=== PATIENT | female | born 1945 | race Caucasian/White ===

== ENCOUNTER 2021-03-31 15:21 | Outpatient (REF) | payer OTHER, SELFPAY ==
[2021-03-31 20:52] LABS: BUN 28 mg/dL (7-18); Chloride 106 mmol/L (98-107); Estimated GFR 54.05 (mL/min/1.73m2); Glucose 82 mg/dL (74-106); Potassium 4.4 mmol/L (3.5-5.1); Sodium 141 mmol/L (136-145)
[2021-04-02 10:55] LABS: COVID-19 RT-PCR UVMMC Result Negative (Negative)
== END 2021-03-31 15:22 | disposition home or self-care (01) ==
LOC: NCHCN 15:21
PROVIDERS: Visit Provider Physician Assistant Medical
DX: Z20.822 Contact with and (suspected) exposure to COVID-19 (principal); J06.9 Acute upper respiratory infection, unspecified; I10 Essential (primary) hypertension
CPT/HCPCS: 80048; U0003

== ENCOUNTER 2021-09-03 15:59 | Outpatient (REF) | payer MEDICARE, SELFPAY ==
[2021-09-03 20:42] LABS: HCT 38.9 % (36.0-46.0); HGB 13.1 g/dL (11.2-15.7); MCH 30.8 pg (27.0-33.0); MCHC 33.7 % (32.0-36.0); MCV 92 fL (80-95); MPV 11.9 fL (8.0-11.0); Platelet Count 233 10^3/uL (130-400); RBC 4.25 10^6/uL (3.93-5.22); RDW 13.3 % (11.7-14.6); RDW-SD 43.3 fL; WBC 10.43 10^3/uL (4.4-10.8)
[2021-09-03 20:56] LABS: Hemoglobin A1C 6.7 % (<5.7)
[2021-09-03 21:11] LABS: ALT 20 U/L (14-59); AST 25 U/L (15-37); Albumin 3.7 g/dL (3.4-5.0); Alkaline Phosphatase 76 U/L (46-116); Anion Gap 8.8 mmol/L (3-11); BUN 38 mg/dL (7-18); Bilirubin, Total 0.4 mg/dL (0.2-1.0); CO2 27.2 mmol/L (21.0-32.0); CREATININE 1.4 mg/dL (0.55-1.02); Chloride 104 mmol/L (98-107); Cholesterol 132 mg/dL (<200); Estimated GFR 36.56 (mL/min/1.73m2); Glucose 166 mg/dL (74-106); HDL Cholesterol 78 mg/dL (40-60); Potassium 4.4 mmol/L (3.5-5.1); Sodium 140 mmol/L (136-145); Triglyceride 285 mg/dL (<150)
[2021-09-03 21:27] LABS: LDL CHOLESTEROL 36 mg/dL (<100)
== END 2021-09-03 16:00 | disposition home or self-care (01) ==
LOC: NCHCN 15:59
PROVIDERS: Visit Provider Physician Assistant Medical
DX: E11.9 Type 2 diabetes mellitus without complications (principal); I10 Essential (primary) hypertension
CPT/HCPCS: 80053; 80061; 83721; 85027; 83036

== ENCOUNTER 2021-10-31 18:50 | Outpatient (REF) | payer MEDICARE, SELFPAY ==
[2021-10-31 16:46] LABS: Anion Gap 10.2 mmol/L (3-11); BUN 23 mg/dL (7-18); CO2 27.8 mmol/L (21.0-32.0); CREATININE 1.1 mg/dL (0.55-1.02); Chloride 105 mmol/L (98-107); Estimated GFR 48.29 (mL/min/1.73m2); Glucose 211 mg/dL (74-106); Sodium 143 mmol/L (136-145)
== END 2021-10-31 18:51 | disposition home or self-care (01) ==
LOC: NCHCN 18:50
PROVIDERS: Visit Provider Physician Assistant Medical
DX: R79.89 Other specified abnormal findings of blood chemistry (principal)
CPT/HCPCS: 80048

== ENCOUNTER 2021-11-24 02:37 | Outpatient (CLI) | payer MEDICARE, SELFPAY ==
--- NOTE | 2021-11-24 | DI.CTLCSR_ITS ---
Exam(s) CT CHEST LUNG CANCER SCREEN EXAM: CT CHEST LUNG CANCER SCREEN CLINICAL HISTORY: CIGARETTE SMOKER F17.210 TECHNIQUE: Imaging Protocol: Axial computed tomography images with coronal and sagittal reformatted images were created and reviewed. Low dose screening protocol. COMPARISON: No exams were available for comparison FINDINGS: Tracheobronchial tree: No bronchiectasis or mucus plugging.. Mediastinum and Jessica: No dominant adenopathy or fluid collection. Pulmonary parenchyma: No consolidation or dominant measurable mass. Mild to moderate emphysematous ch anges, greater in the upper lobes.. Lung Nodules: 5.6 x 8.8 x 5.4 millimeter nodule anterior right lower lobe. 4 millimeter diameter jamin fissural nodule right middle lobe. 4 millimeter diameter peripheral nodule right upper lobe. Multiple other scattered tiny nodules both upper lobes. Calcified nodule left lower lobe. Pleura: No effusion. No pneumothorax. Heart: The heart is not dilated. coronary artery calcifications are seen. Aorta: Thoracic aorta non-dilated.Heavily calcified. Upper abdomen: Small hiatal hernia. Gallstones. Low-density nodule left adrenal gland consistent with an adenoma. Bones: Prominent osteophytes. No compression fractures. Soft Tissues: Unremarkable. IMPRESSION: 6.6 millimeter average diameter nodule right lower lobe. Additional 4 millimeter nodules right middle and upper lobes. Lung RADS Cat 3 - Probably Benign: Probably benign finding(s) - short term follow-up suggested; inclu de nodules with a low likelihood of becoming a clinically active cancer. Lung-RADS 1.0 CATEGORIES: Category 0 - Prior chest CT exam(s) being located for comparison. Category 1 - Annual screening in 12 months. No nodules or definitely benign nodules. Category 2 - Annual screening in 12 months. Benign appearance. Nodules with low likelihood of becomin g active cancer. Category 3 - 6-month follow-up. Probably benign. Short-term follow-up suggested. Nodules with low lik elihood of becoming active cancer. Category 4A - 3-month follow-up and CT/PET if >8 mm in size. Suspicious finding. Findings which requi re additional testing. Category 4B - Findings which require additional testing and tissue sampling. Category 4X - Category 3 or 4 nodules with additional features or imaging findings that increases the suspicion of malignancy. Modifier S- Potentially clinically significant findings (non lung cancer) RADIATION DOSE DELIVERED: 77.13mGy.cm Total DLP 1.84mGy CTDIvol DATA REPOSITORY: All CT scans at this facility are submitted to the National Radiology Data Registry (NRDR) Dose Index Registry (DIR) with the [employer] (ACR). RADIATION OPTIMIZATION: All CT scans at this facility use at least one of these dose optimization te chniques: automated exposure control; mA and/or kV adjustment per patient size (includes targeted exa ms where dose is matched to clinical indication); or iterative reconstruction.
== END 2021-11-24 02:57 ==
PROVIDERS: Visit Provider Physician Assistant Medical
DX: F17.210 Nicotine dependence, cigarettes, uncomplicated (principal); Z12.2 Encounter for screening for malignant neoplasm of respiratory organs; R91.1 Solitary pulmonary nodule
CPT/HCPCS: 71271

== ENCOUNTER 2022-04-29 16:15 | Outpatient (REF) | payer OTHER, SELFPAY ==
[2022-04-29 20:34] LABS: Hemoglobin A1C 6.7 % (<5.7)
[2022-04-29 20:39] LABS: ALT 18 U/L (14-59); AST 16 U/L (15-37); Albumin 3.6 g/dL (3.4-5.0); Alkaline Phosphatase 75 U/L (46-116); Anion Gap 6.1 mmol/L (3-11); BUN 26 mg/dL (7-18); Bilirubin, Total 0.3 mg/dL (0.2-1.0); CO2 29.9 mmol/L (21.0-32.0); CREATININE 1.1 mg/dL (0.55-1.02); Calcium 9.5 mg/dL (8.5-10.1); Calculated LDL 26 mg/dL (<100); Chloride 109 mmol/L (98-107); Cholesterol 134 mg/dL (<200); Estimated GFR 52.08 (mL/min/1.73m2); Glucose 139 mg/dL (74-106); HDL Cholesterol 75 mg/dL (40-60); Potassium 4.3 mmol/L (3.5-5.1); Sodium 145 mmol/L (136-145); Total Protein 6.9 g/dL (6.4-8.2); Triglyceride 167 mg/dL (<150)
== END 2022-04-29 16:16 | disposition home or self-care (01) ==
LOC: NCHCN 16:15
PROVIDERS: PCP Physician Assistant Medical; Visit Provider Physician Assistant Medical
DX: E13.59 Other specified diabetes mellitus with other circulatory complications (principal); I10 Essential (primary) hypertension
CPT/HCPCS: 80053; 80061; 83036

== ENCOUNTER 2023-05-18 15:24 | Outpatient (REF) | payer MEDICARE, SELFPAY ==
[2023-05-18 16:10] LABS: ALT 12 U/L (14-59); AST 12 U/L (15-37); Albumin 3.3 g/dL (3.4-5.0); Alkaline Phosphatase 81 U/L (46-116); Anion Gap 10.1 mmol/L (3-11); BUN 25 mg/dL (7-18); Bilirubin, Total 0.3 mg/dL (0.2-1.0); CO2 27.9 mmol/L (21.0-32.0); CREATININE 1.5 mg/dL (0.55-1.02); Calcium 9.4 mg/dL (8.5-10.1); Calculated LDL 42 mg/dL (<100); Chloride 105 mmol/L (98-107); Cholesterol 132 mg/dL (<200); Estimated GFR 35.67 (mL/min/1.73m2); Glucose 160 mg/dL (74-106); HDL Cholesterol 70 mg/dL (40-60); Potassium 4.4 mmol/L (3.5-5.1); Sodium 143 mmol/L (136-145); Triglyceride 102 mg/dL (<150)
[2023-05-18 16:31] LABS: Hemoglobin A1C 7.1 % (<5.7)
== END 2023-05-18 15:25 | disposition home or self-care (01) ==
LOC: NCHCN 15:24
PROVIDERS: PCP Physician Assistant Medical; Visit Provider Physician Assistant Medical
DX: E11.9 Type 2 diabetes mellitus without complications (principal); E78.5 Hyperlipidemia, unspecified; Z86.73 Personal history of transient ischemic attack (TIA), and cerebral infarction without residual deficits
CPT/HCPCS: 80053; 80061; 83036

== ENCOUNTER 2023-06-04 14:27 | Outpatient (REF) | payer MEDICARE, SELFPAY ==
[2023-06-04 21:45] LABS: COMMENT (LAB VIEW ONLY) 15.27 mg/dL; Microalb ug/mg Crea 19.6 ug/mg Cr
== END 2023-06-04 14:28 | disposition home or self-care (01) ==
LOC: NCHCN 14:27
PROVIDERS: PCP Physician Assistant Medical; Visit Provider Physician Assistant Medical
DX: N18.9 Chronic kidney disease, unspecified (principal)
CPT/HCPCS: 82043; 82570

== ENCOUNTER 2023-06-07 13:19 | Outpatient (REF) | payer MEDICARE, SELFPAY ==
[2023-06-07 15:47] LABS: Anion Gap 8.6 mmol/L (3-11); BUN 25 mg/dL (7-18); CO2 26.4 mmol/L (21.0-32.0); CREATININE 1.3 mg/dL (0.55-1.02); Calcium 8.9 mg/dL (8.5-10.1); Chloride 109 mmol/L (98-107); Estimated GFR 42.35 (mL/min/1.73m2); Glucose 234 mg/dL (74-106); Potassium 4.2 mmol/L (3.5-5.1); Sodium 144 mmol/L (136-145)
== END 2023-06-07 13:20 | disposition home or self-care (01) ==
LOC: NCHCN 13:19
PROVIDERS: PCP Physician Assistant Medical; Visit Provider Physician Assistant Medical
DX: N18.9 Chronic kidney disease, unspecified (principal)
CPT/HCPCS: 80048

== ENCOUNTER → 2023-06-17 04:38 | Outpatient (CLI) | payer MEDICARE, SELFPAY ==
--- NOTE | 2023-06-17 | DI.CTLCSR_ITS ---
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 Pulmonary parenchyma: No consolidation or dominant measurable mass. There are calcified granuloma pre sent. Mild centrilobular emphysematous changes are present. Lung Nodules: There is again seen a nodule in the anterior aspect of the right lower lobe which measu res 8.5 mm x 5.8 mm. This is unchanged compared to the prior examination. (Series 6, image 336). T here is a 4 mm nodule again seen in the periphery of the right upper lobe (series 6, image 146). The re is also a stable 4 mm nodule in the right middle lobe adjacent to the right minor fissure. No new pulmonary nodules are present. Mediastinum and Jessica: No dominant adenopathy or fluid collection. The esophagus is unremarkable.There is a small hiatal hernia. Thyroid gland: Unremarkable. Lymph nodes: Unremarkable. Pleura: No effusion or pneumothorax. Heart: The heart is not dilated. Coronary artery calcification and/or stents are present. No pericar dial effusion. Aorta: Thoracic aorta non-dilated.Atherosclerotic calcification is present. Upper abdomen: There is a stable left adrenal nodule measuring 1.8 x 1.6 cm. (Series 6, image 567). Soft Tissues: Unremarkable. Bones: Within normal limits. IMPRESSION: Stable pulmonary nodules. No new pulmonary nodules are present. Lung RADS Cat 2 - Benign Appearance / Behavior: Nodules with a very low likelihood of becoming a clin ically active cancer due to size or lack of growth Lung-RADS 1.0 CATEGORIES: Category 0 - Prior chest CT exam(s) being located for comparison. Category 1 - Annual screening in 12 months. No nodules or definitely benign nodules. Category 2 - Annual screening in 12 months. Benign appearance. Nodules with low likelihood of becomin g active cancer. Category 3 - 6-month follow-up. Probably benign. Short-term follow-up suggested. Nodules with low lik elihood of becoming active cancer. Category 4A - 3-month follow-up and CT/PET if >8 mm in size. Suspicious finding. Findings which requi re additional testing. Category 4B - Findings which require additional testing and tissue sampling. Suspicious finding. Category 4X - Category 3 or 4 nodules with additional features or imaging findings that increases the suspicion of malignancy. Modifier S- Potentially clinically significant finding. (Non lung cancer) RADIATION DOSE DELIVERED: Total DLP Total DLP DATA REPOSITORY: All CT scans at this facility are submitted to the National Radiology Data Registry (NRDR) Dose Index Registry (DIR) with the [employer] (ACR). RADIATION OPTIMIZATION: All CT scans at this facility use at least one of these dose optimization te chniques: automated exposure control; mA and/or kV adjustment per patient size (includes targeted exa ms where dose is matched to clinical indication); or iterative reconstruction.
== END ==
PROVIDERS: PCP Physician Assistant Medical; Visit Provider Physician Assistant Medical
DX: Z12.2 Encounter for screening for malignant neoplasm of respiratory organs (principal); R91.8 Other nonspecific abnormal finding of lung field; F17.210 Nicotine dependence, cigarettes, uncomplicated
CPT/HCPCS: 71271

== ENCOUNTER 2023-08-16 13:00 | Outpatient (REF) | payer MEDICARE, SELFPAY ==
[2023-08-16 16:19] LABS: Abs Immature Grans 0.06 10^3/uL (0.0-0.06); Absolute Basophil Count 0.07 10^3/uL (0.0-0.2); Absolute Eosinophil Count 0.23 10^3/uL (0.0-0.7); Absolute Lymphocyte Count 2.88 10^3/uL (1.2-3.4); Absolute Monocyte Count 0.53 10^3/uL (0.1-0.8); Absolute Neutrophil Count 8.26 10^3/uL (1.2-6.7); Basophils % 0.6 %; Eosinophils % 1.9 %; HGB 10.3 g/dL (11.2-15.7); Immature Grans % 0.5 %; Lymphocytes % 23.9 %; MCHC 32.2 % (32.0-36.0); MCV 93 fL (80-95); MPV 10.7 fL (8.0-11.0); Monocytes % 4.4 %; Neutrophils % 68.7 %; Platelet Count 329 10^3/uL (130-400); RBC 3.43 10^6/uL (3.93-5.22); RDW 14.6 % (11.7-14.6); RDW-SD 48.1 fL; WBC 12.03 10^3/uL (4.4-10.8)
[2023-08-16 16:28] LABS: Anion Gap 9.4 mmol/L (3-11); BUN 22 mg/dL (7-18); CO2 26.6 mmol/L (21.0-32.0); CREATININE 1.2 mg/dL (0.55-1.02); Calcium 9.6 mg/dL (8.5-10.1); Chloride 107 mmol/L (98-107); Estimated GFR 46.33 (mL/min/1.73m2); Glucose 166 mg/dL (74-106); Potassium 4.5 mmol/L (3.5-5.1); Sodium 143 mmol/L (136-145)
== END 2023-08-16 13:01 | disposition home or self-care (01) ==
LOC: NCHCN 13:00
PROVIDERS: PCP Physician Assistant Medical; Visit Provider Physician Assistant Medical
DX: E11.9 Type 2 diabetes mellitus without complications (principal); N18.9 Chronic kidney disease, unspecified
CPT/HCPCS: 80048; 83036; 85025

== ENCOUNTER 2023-11-09 16:40 | Outpatient (REF) | payer MEDICARE, SELFPAY ==
[2023-11-09 20:01] LABS: Anion Gap 9.6 mmol/L (3-11); BUN 29 mg/dL (7-18); CO2 30.4 mmol/L (21.0-32.0); CREATININE 1.3 mg/dL (0.55-1.02); Chloride 105 mmol/L (98-107); Estimated GFR 42.09 (mL/min/1.73m2); Glucose 132 mg/dL (74-106); Potassium 4.9 mmol/L (3.5-5.1); Sodium 145 mmol/L (136-145)
[2023-11-09 20:11] LABS: Hemoglobin A1C 6.4 % (<5.7)
== END 2023-11-09 16:41 | disposition home or self-care (01) ==
LOC: NCHCN 16:40
PROVIDERS: PCP Physician Assistant Medical; Visit Provider Physician Assistant Medical
DX: E11.9 Type 2 diabetes mellitus without complications (principal)
CPT/HCPCS: 80048; 83036

== ENCOUNTER 2023-12-20 19:15 | Outpatient (REF) | payer MEDICARE, SELFPAY ==
[2023-12-20 17:14] LABS: Anion Gap 10.2 mmol/L (3-11); BUN 11 mg/dL (7-18); CO2 26.8 mmol/L (21.0-32.0); CREATININE 0.9 mg/dL (0.55-1.02); Calcium 9.1 mg/dL (8.5-10.1); Chloride 107 mmol/L (98-107); Estimated GFR 65.44 (mL/min/1.73m2); Glucose 92 mg/dL (74-106); Potassium 4.3 mmol/L (3.5-5.1); Sodium 144 mmol/L (136-145)
== END 2023-12-20 19:16 | disposition home or self-care (01) ==
LOC: NCHCN 19:15
PROVIDERS: PCP Physician Assistant Medical; Visit Provider Physician Assistant Medical
DX: N18.9 Chronic kidney disease, unspecified (principal)
CPT/HCPCS: 80048

== ENCOUNTER 2024-02-08 14:01 | Outpatient (REF) | payer MEDICARE, SELFPAY ==
[2024-02-08 16:24] LABS: Hemoglobin A1C 6.3 % (<5.7)
[2024-02-08 16:29] LABS: ALT 27 U/L (14-59); AST 83 U/L (15-37); Albumin 2.1 g/dL (3.4-5.0); Alkaline Phosphatase 233 U/L (46-116); Anion Gap 12.5 mmol/L (3-11); BUN 13 mg/dL (7-18); Bilirubin, Total 0.97 mg/dL (0.2-1.0); CO2 23.5 mmol/L (21.0-32.0); CREATININE 0.8 mg/dL (0.55-1.02); Calcium 8.3 mg/dL (8.5-10.1); Calculated LDL 41 mg/dL (<100); Chloride 104 mmol/L (98-107); Cholesterol 96 mg/dL (<200); Estimated GFR 75.37 (mL/min/1.73m2); Glucose 137 mg/dL (74-106); HDL Cholesterol 33 mg/dL (40-60); Sodium 140 mmol/L (136-145); Total Protein 5.3 g/dL (6.4-8.2); Triglyceride 111 mg/dL (<150)
[2024-02-08 16:55] LABS: NT-proBNP 696 pg/mL (<300)
[2024-02-11 16:42] LABS: 25-Hydroxy D Total 25 ng/mL; 25-Hydroxy D2 <4.0 ng/mL; 25-Hydroxy D3 25 ng/mL
== END 2024-02-08 14:02 | disposition home or self-care (01) ==
LOC: NCHCN 14:01
PROVIDERS: PCP Physician Assistant Medical; Visit Provider Physician Assistant Medical
DX: E11.9 Type 2 diabetes mellitus without complications (principal); F41.9 Anxiety disorder, unspecified
CPT/HCPCS: 80053; 80061; 82306; 83036; 83880

== ENCOUNTER 2024-03-06 09:27 | Observation (INO) | payer MEDICARE, SELFPAY ==
[2024-03-06] VITALS (52 sets, daily range): BP systolic 110–151; BP diastolic 40–122; PULSE 97–120; RESP 15–26; TEMP 37.1; O2SAT 93–100
--- NOTE | 2024-03-06 | DI.US_ITS ---
Exam(s) US EXTREMITY VENOUS BI EXAM: US EXTREMITY VENOUS BI CLINICAL HISTORY: swelling with cancer. TECHNIQUE: Bilateral lower extremity venous ultrasound performed using grayscale, color-flow, and sp ectral Doppler analysis. COMPARISON: No exams were available for comparison FINDINGS: The bilateral common femoral, femoral and popliteal veins demonstrate normal compressibility, augment ation, and color Doppler. The posterior tibial veins are patent. IMPRESSION: Right: Negative for DVT Left: Negative for DVT DATA REPOSITORY:
--- NOTE | 2024-03-06 09:30 | RT.EKG_ITS ---
APPROVED REPORT Exam: Resting ECG Reason for Exam: sob Patient Location: E HR:112 bpm ECG Measurements Heart Rate 112 AXIS AZ 138 P 40 QRSd 79 QRS -18 QT 364 T 109 QTc 492 Conclusion Sinus tachycardia...rate> 99 I have reviewed and interpreted ECG and agree with software generated interpretation.
--- NOTE | 2024-03-06 09:45 | DI.RAD_ITS ---
Exam(s) XR CHEST 2V PA LATERAL EXAM: XR CHEST 2V PA LATERAL CLINICAL HISTORY: SOB, edema. TECHNIQUE: 2D digital imaging was performed. COMPARISON: No exams were available for comparison FINDINGS: 2 views: Heart size is normal. The mediastinum is not widened. Left lung is clear. Multiple small nodular densities are seen over the lower right lung field which average approximately 6 mm size. Best seen on the frontal view. Similar findings are not seen in th e opposite-left lung. There are no pleural effusions. IMPRESSION: Multiple small nodular densities seen right lower lung field with average size 6 mm. If clinically i ndicated follow-up CT scan can be performed.No confluent infiltrates and no pleural effusions evident . No pulmonary edema. DATA REPOSITORY: RADIATION DOSE DELIVERED:
--- NOTE | 2024-03-06 09:45 | ED.GENADUL_ITS ---
Discharge Plan Disposition Patient Disposition: Admit to [facility] Condition: Serious Discharge Details Chief Complaint: SOB Clinical Impression: Metastatic cancer, Ascites, Bilateral edema of lower extremity Primary Care Provider: Karen Iglesias ED Provider: Aminta Olivera Home Meds and New Rx's Prescriptions: No Action furosemide 40 mg tablet 40 mg PO DAILY lisinopril 20 mg tablet 20 mg PO DAILY (DME) OneTouch Ultra Test Strip MISCELLANEOUS fluoxetine 10 mg capsule 10 mg PO DAILY hydroxyzine HCl 25 mg tablet 25 mg PO DAILY rosuvastatin 10 mg tablet 10 mg PO ONCE potassium chloride 10 mEq tablet,ER particles/crystals 10 meq PO DAILY Patient Comments: TAKE 1 TABLET BY MOUTH ONCE DAILY bupropion HCl 150 mg tablet extended release 24 hr 150 mg PO DAILY HPI General Mode of arrival: EMS . Date/Time Provider Initiated Documentation: 03/06/24 09:30 . Limitations to Documentation: no limitations . Information obtained by: patient, family (daughter), RN notes reviewed and old records reviewed . History of Present Illness 78 year old F presents to the emergency department with the chief complaint of BLE edema, discomfort, ambulatory disfunction, described as severe, Quality is described as aching, and is localized to the left, right and lower extremity. Patient reports no radiation. Patient started experiencing this week(s) and it has been constant. No relieving factors improve symptom(s), No exacerbating factors reported . Patient notes malaise, shortness of breath and weakness (generalized); denies chest pain, cough, fever/chills, loss of appetite, nausea/vomiting and syncope. Patient did receive the following treatments prior to arrival, other (lasix) Related Data Home Medications ?Medication ?Instructions ?Recorded ?Confirmed blood sugar diagnostic (OneTouch 03/06/24 03/06/24 Ultra Test strips) bupropion HCl 150 mg 24 hr tablet, 150 mg PO DAILY 03/06/24 03/06/24 extended release fluoxetine 10 mg capsule 10 mg PO DAILY 03/06/24 03/06/24 furosemide 40 mg tablet 40 mg PO DAILY 03/06/24 03/06/24 hydroxyzine HCl 25 mg tablet 25 mg PO DAILY 03/06/24 03/06/24 lisinopril 20 mg tablet 20 mg PO DAILY 03/06/24 03/06/24 potassium chloride 10 mEq 10 meq PO DAILY 03/06/24 03/06/24 tablet,extended release(part/cryst) rosuvastatin 10 mg tablet 10 mg PO ONCE 03/06/24 03/06/24 Allergies Allergy/AdvReac Type Severity Reaction Status Date / Time No Known Allergies Allergy Verified 03/06/24 10:59 General Stated Complaint: SOB ALBIN: 3 Review of Systems Constitutional Constitutional: Reports as per HPI, Denies chills, Denies fever(s) and Denies headache(s) Eyes Eyes: Denies change in vision ENT Ears, Nose, Mouth, and Throat: Denies dizziness and Denies headache(s) Cardiovascular Cardiovascular: Reports as per HPI Respiratory Respiratory: Reports as per HPI, Denies chest congestion, Denies cough, Denies pain on inspiration and Denies pain with cough Gastrointestinal Gastrointestinal: Reports as per HPI, Denies abdominal pain, Denies diarrhea, Denies nausea and Denies vomiting Musculoskeletal Musculoskeletal: Reports as per HPI and Denies back pain Integumentary/Breasts Skin/Breast: Reports as per HPI and Denies rash Neurologic Neurologic: Reports as per HPI, Denies dizziness and Denies headache(s) Exam Const General: cooperative, healthy appearing, comfortable, no acute distress and well developed Nutritional Appearance: average body habitus and well nourished Orientation: alert, awake and oriented x3 Chest Chest: normal inspection of the chest, normal palpation of entire chest wall and no crepitus Resp Effort & Inspection: normal respiratory effort, able to speak in complete sentences and no respiratory distress Auscultation: clear to auscultation bilaterally, no rales, no rhonchi and no wheezes Cardio Rate: regular rate Rhythm: regular rhythm Heart Sounds: S1 normal and S2 normal GI Inspection: edema and distended Palpation: soft, not firm, no guarding, not rigid, nontender and ascites Auscultation: normal bowel sounds Back/Spine/Pelvis Thoracic/Lumbar Spine: thoracic and lumbar spine normal to inspection Skin General skin exam: no rashes or lesions noted Trauma: no lacerations or abrasions Neuro General: patient alert, patient awake and patient oriented x3 Cognition: normal cognition Speech: speech normal Extrem General: capillary refill normal and edema Laterality: bilateral Course Vital Signs Vital signs: Vital Signs Pulse 110 H 03/06/24 09:28 Respiratory Rate 18 03/06/24 09:28 Blood Pressure 138/40 L 03/06/24 09:28 Pulse Oximetry 96 03/06/24 09:28 Pulse 110 H 03/06/24 09:28 Respiratory Rate 18 03/06/24 09:28 Blood Pressure 138/40 L 03/06/24 09:28 Pulse Oximetry 96 03/06/24 09:28 Oxygen Delivery Method Room Air 03/06/24 09:28 Oxygen Flow Rate 0 03/06/24 09:28 Medical Decision Making Patient is a pleasant 78-year-old female with past medical history significant for hypertension, osteoporosis, type 2 diabetes, CVA, COPD, depression, presenting today with chief complaint of bilateral lower extremity edema. She reports that the edema has been increasing in recent weeks, was started on Lasix by primary care provider and reports that she was prescribed a higher dosage but has not yet started this. She reports that the edema and discomfort in the legs got to the point that she is unable to ambulate. Patient does live alone although she reports that her daughter is in the home below her, she states that the daughter also does not assist her with her ADLs. Patient reports that she was not able to ambulate today she was incontinent of both urine and feces. She denies any fevers or chills. Denies any chest pain. States that she has had increased shortness of breath. States that she had 2 falls over the fall both of which she injured her arm and did require surgery. She has become more dependent since that time. On exam, patient appears nontoxic, hemodynamically stable. Her lungs are clear. She does have a rather rounded abdomen which she states is larger than typical for her. She likely has some amount of ascites. She has significant lower extremity edema that comes up into the thigh. She is intact capillary refill, intact sensation. As the swelling is equal bilaterally, I do not see any indication to suggest a DVT being the cause. Is more likely to be CHF. Will begin patient on IV Lasix. With the severity of the swelling as well as her inability to ambulate unassisted, I believe patient will likely need to be admitted for her CHF exacerbation. Labs reviewed. Concerning for transaminitis which on review appears to have been increasing over the past few months. She also has a white count of 21. Considered more of an obstructive process and would like to obtain imaging which I did discuss with the patient. To move forward with the CT to assess IVC and liver. Referral contacted by the radiologist is concerned for metastatic process, read below. VISUALIZED LUNG BASES: There are multiple concerning noncalcified nodules in both lung bases suspicious for metastatic nodules, the largest measuring 1.5 cm and in the left lower lobe lateral basal segment. There also metastatic nodules in the right middle lobe and lingular segment of the left lung. There are no pleural effusions.. ABDOMEN: There is a moderate amount of ascites in the abdomen and is also anasarca evident. LIVER: There are multiple confluent masses in both hepatic lobes suspicious for neoplasm. The liver also appears somewhat cirrhotic. GALLBLADDER/BILIARY: Multiple calcified gallstones are noted in the gallbladder lumen. CBD is not dilated. PANCREAS: No evidence of pancreatic mass nor dilatation of the pancreatic duct. SPLEEN: Spleen size is normal. There is perisplenic ascites. There are calcified granulomas in the spleen noted. ADRENALS: There is a nodule in the left adrenal gland which measures 2.3 by 1.6 cm. Given the findings in the liver this may be metastatic. No obvious masses in the opposite-right adrenal gland. KIDNEYS:There calculi in both kidneys, more numerous in the left kidney. These measure up to 3 mm size. There are cortical cysts in the left kidney noted. No obvious solid renal masses. No hydronephrosis. No hydroureter. ABDOMINAL AORTA: Abdominal aorta is heavily calcified but not enlarged. LYMPH NODES: There is no retroperitoneal nor paraaortic adenopathy. ABDOMINAL WALL: No evidence of significant anterior abdominal wall nor inguinal hernia. GI: There is no evidence of bowel obstruction, free air, nor abscess. There is extensive sigmoid diverticulosis. Also diverticuli involving left side of the colon. No obvious acute diverticulitis. PELVIS: LYMPH NODES: There is no intrapelvic nor inguinal adenopathy. GI: No evidence of appendicitis.Extensive sigmoid diverticulosis. URINARY BLADDER: No calculi nor obvious masses evident REPRODUCTIVE: Calcified uterine fibroids on the right side of the uterus. No ominous adnexal masses. Some free fluid in the dependent aspect of the pelvis is noted as well as around the urinary bladder. OSSEOUS: Dense nonexpansile bone lesion is seen in the inferior pubic ramus left-side. This possibly may just represent a benign bone island given the high density. Few other smaller high density bone lesions are noted in the left side of the sacrum and right iliac bone of the pelvis. There is degenerative anterolisthesis of L4 upon L5 without disc space narrowing at this level. Schmorl's node invagination noted in the superior endplate of T11. No acute compression fractures evident. IMPRESSION: 1. There are multiple noncalcified nodules throughout both visualized lower lung max, highly suspicious for metastatic disease. There are no pleural effusions. 2. There is diffuse abnormal confluent hypodensities involving both lobes of the liver suspicious for metastatic disease. Liver also appears cirrhotic her 3. There is a moderate amount of ascites in the abdomen and pelvis and there is anasarca. 4. No gallstones noted 5. There is 2.3 x 1.6 cm nodule in left adrenal gland which may be metastatic given the other findings here. 6. Bilateral nonobstructive nephrolithiasis. 7. Extensive to avoid diverticulosis. No obvious evidence of acute diverticulitis but a subtle case of diverticulitis can be missed given the extensive involvement of the sigmoid with diverticuli here. Bone findings as above. Consulted with [facility]. He advised likely need biopsy. They advised LFT elevation likely just associated with mass. Advised tapping abdomen for possible infection. Recommends IR bx. They will try to for a down/back for her biopsy. Will discuss with IR. Patient does not seem clear on her advanced directives or wishes. She is clearly easily frustrated by her daughter who is now at bedside. She states that sulema lives in [facility] same home but below her and is not of any assistance, she does not feel safe at home and will need admission. not able to accept today but will admit here with plan for transfer and biopsy. Consulted with hospitalist who is at bedside discussing plan for admission here. Spoke with Dr. Raygoza with IR.They will plan for down/back tomorrow. Discussed plan for admission and likely down a back procedure tomorrow for IR biopsy. Patient and her daughter have had more of a chance to discuss her diagnosis she also discussed this further with the hospitalist and at this point patient does not want to have further procedures done and would like to discuss hospice with goal to be able to be at home with family. She is agreeable to being admitted at the hospital at this point as she is not able to be successfully transferred home in her current condition but ultimately does not want to go to [facility] for any type of procedures. She wishes to be a DNR and DNI. I did relay this to the hospitalist and palliative care will be involved and discussed transition to hospice. Quality:SDOH Health Related Social Needs: Health related social needs transportation insecurity( Z59.82), problem related to primary support group(Z63.9) PFSH All Active Problems (Updated 03/06/24 @ 16:29 by SKIP Richards) Bilateral edema of lower extremity (Acute) Ascites (Acute) Metastatic cancer (Acute) Social History Smoking risk assessment performed?: No Alcohol Intake: former Drug use: Never Substance use type: does not use Housing: apartment Additional Social history: Pt has daughter and son that lives downstairs. States daughter doesn't help her and son in law only sometimes. Has been near immobile d/t fluid overload for 3 weeks.
[2024-03-06 11:08] LABS: Abs Immature Grans 0.13 10^3/uL (0.0-0.06); Absolute Monocyte Count 1.57 10^3/uL (0.1-0.8); Basophils % 0.4 %; Eosinophils % 0.1 %; HCT 35.4 % (36.0-46.0); Immature Grans % 0.6 %; Lymphocytes % 7.4 %; MCH 25.7 pg (27.0-33.0); MCHC 31.1 % (32.0-36.0); MCV 83 fL (80-95); Neutrophils % 84.1 %; Platelet Count 357 10^3/uL (130-400); RBC 4.28 10^6/uL (3.93-5.22); RDW 21.6 % (11.7-14.6); RDW-SD 63.7 fL; WBC 21.26 10^3/uL (4.4-10.8)
[2024-03-06 11:09] LABS: Absolute Basophil Count 0.09 10^3/uL (0.0-0.2); Absolute Eosinophil Count 0.02 10^3/uL (0.0-0.7); Absolute Lymphocyte Count 1.57 10^3/uL (1.2-3.4); Absolute Neutrophil Count 17.88 10^3/uL (1.2-6.7)
[2024-03-06] MEDS: Furosemide 40 MG/4 ML VIAL IVP (11:12)
[2024-03-06 11:22] LABS: Anisocytosis 1+; Monocytes % 7.4 %
[2024-03-06 11:36] LABS: ALT 26 U/L (14-59); AST 141 U/L (15-37); Alkaline Phosphatase 340 U/L (46-116); Anion Gap 11.5 mmol/L (3-11); BUN 22 mg/dL (7-18); Bilirubin, Total 1.87 mg/dL (0.2-1.0); CO2 24.5 mmol/L (21.0-32.0); CREATININE 1.2 mg/dL (0.55-1.02); Calcium 8.4 mg/dL (8.5-10.1); Chloride 106 mmol/L (98-107); Estimated GFR 46.33 (mL/min/1.73m2); Glucose 127 mg/dL (74-106); Magnesium 1.9 mg/dL (1.8-2.4); NT-proBNP 813 pg/mL (<300); Potassium 3.6 mmol/L (3.5-5.1); Sodium 142 mmol/L (136-145); TSH (W/Ref FT4) 2.01 uIU/mL (0.36-3.74); Total Protein 5.9 g/dL (6.4-8.2); Troponin I 7 ng/L (<or=51)
[2024-03-06] MEDS: Omnipaque 350 MG/ML 100 ML BTL 75 ML IJ (12:09)
[2024-03-06] MEDS: Normal Saline - Diluent 50 ML VIAL IJ (12:10)
[2024-03-06 12:48] LABS: Troponin I 8 ng/L (<or=51)
--- NOTE | 2024-03-06 12:52 | DI.CT_ITS ---
Exam(s) CT ABDOMEN PELVIS WO EXAM: CT ABDOMEN PELVIS WO CLINICAL HISTORY: BLE edema, transaminitis. TECHNIQUE: Imaging Protocol: Axial computed tomography images with coronal and sagittal reformatted images were created and reviewed CONTRAST MATERIAL: Intravenous: none Oral: None COMPARISON: CR XR CHEST 2V PA LATERAL from 03/06/2024 FINDINGS: VISUALIZED LUNG BASES: There are multiple concerning noncalcified nodules in both lung bases suspicio us for metastatic nodules, the largest measuring 1.5 cm and in the left lower lobe lateral basal segm ent. There also metastatic nodules in the right middle lobe and lingular segment of the left lung. There are no pleural effusions.. ABDOMEN: There is a moderate amount of ascites in the abdomen and is also anasarca evident. LIVER: There are multiple confluent masses in both hepatic lobes suspicious for neoplasm. The liver also appears somewhat cirrhotic. GALLBLADDER/BILIARY: Multiple calcified gallstones are noted in the gallbladder lumen. CBD is not di lated. PANCREAS: No evidence of pancreatic mass nor dilatation of the pancreatic duct. SPLEEN: Spleen size is normal. There is perisplenic ascites. There are calcified granulomas in the spleen noted. ADRENALS: There is a nodule in the left adrenal gland which measures 2.3 by 1.6 cm. Given the findin gs in the liver this may be metastatic. No obvious masses in the opposite-right adrenal gland. KIDNEYS:There calculi in both kidneys, more numerous in the left kidney. These measure up to 3 mm si ze. There are cortical cysts in the left kidney noted. No obvious solid renal masses. No hydroneph rosis. No hydroureter. ABDOMINAL AORTA: Abdominal aorta is heavily calcified but not enlarged. LYMPH NODES: There is no retroperitoneal nor paraaortic adenopathy. ABDOMINAL WALL: No evidence of significant anterior abdominal wall nor inguinal hernia. GI: There is no evidence of bowel obstruction, free air, nor abscess. There is extensive sigmoid diverticulosis. Also diverticuli involving left side of the colon. No ob vious acute diverticulitis. PELVIS: LYMPH NODES: There is no intrapelvic nor inguinal adenopathy. GI: No evidence of appendicitis.Extensive sigmoid diverticulosis. URINARY BLADDER: No calculi nor obvious masses evident REPRODUCTIVE: Calcified uterine fibroids on the right side of the uterus. No ominous adnexal masses. Some free fluid in the dependent aspect of the pelvis is noted as well as around the urinary bladde r. OSSEOUS: Dense nonexpansile bone lesion is seen in the inferior pubic ramus left-side. This possibly may just represent a benign bone island given the high density. Few other smaller high density bone lesions are noted in the left side of the sacrum and right iliac bone of the pelvis. There is degenerative anterolisthesis of L4 upon L5 without disc space narrowing at this level. Schm orl's node invagination noted in the superior endplate of T11. No acute compression fractures eviden t. IMPRESSION: 1. There are multiple noncalcified nodules throughout both visualized lower lung max, highly suspi cious for metastatic disease. There are no pleural effusions. 2. There is diffuse abnormal confluent hypodensities involving both lobes of the liver suspicious for metastatic disease. Liver also appears cirrhotic her 3. There is a moderate amount of ascites in the abdomen and pelvis and there is anasarca. 4. No gallstones noted 5. There is 2.3 x 1.6 cm nodule in left adrenal gland which may be metastatic given the other findin gs here. 6. Bilateral nonobstructive nephrolithiasis. 7. Extensive to avoid diverticulosis. No obvious evidence of acute diverticulitis but a subtle case of diverticulitis can be missed given the extensive involvement of the sigmoid with diverticuli here . Bone findings as above. Report called by myself to ER provider 03/06/2024 at 1:15 p.m. RADIATION DOSE DELIVERED: 847.88mGy.cm Total DLP DATA REPOSITORY: All CT scans at this facility are submitted to the National Radiology Data Registry (NRDR) Dose Index Registry (DIR) with the [employer] (ACR). RADIATION OPTIMIZATION: All CT scans at this facility use at least one of these dose optimization te chniques: automated exposure control; mA and/or kV adjustment per patient size (includes targeted exa ms where dose is matched to clinical indication); or iterative reconstruction.
--- NOTE | 2024-03-06 16:38 | HPE_ITS ---
Date of service: 03/06/24 Time of Service: 16:39 Assessment and Plan Assessment and plan (1) Ascites: Status: Acute Assessment and plan: Will d/w hospice and pt to see if they would be interested in a therapeutic tap (2) Metastatic cancer: Status: Acute Assessment and plan: Pt is planing on hospice care (3) Bilateral edema of lower extremity: Status: Acute Assessment and plan: has been tried on diuretics without much success. Will consider increasing diuretic dose although I think the edema is more from disease process with 3rd spacing that isn't readily improved with diuresis (4) Transaminitis: Status: Acute Assessment and plan: noted History of Present Illness History of Present Illness Chief Complaint: abdominal pain Narrative: This is a 78-year-old female who was seen in the ED today for bilateral lower extremity swelling and was ultimately diagnosed with appears to be liver metastasis or a primary liver cancer. The original plan was to transfer her down to [facility] for further evaluation and treatment by GI. After all her results became available the plan was to send her down for interventional radiology with a biopsy but to return here for awaiting pathology. Ultimately the patient decided to go on hospice care only. In my interview with the patient's he states that she has been feeling weak for the last 6 months with a decreasing appetite and strength. Patient sustained 2 falls which she attributes to weakness and is no longer able to walk or get out of bed without significant assistance. In reviewing notes from the ED the patient will be admitted to the hospitalist service. We will be admitting the patient for the next day or 2 so arrangements can be made. Review of Systems All systems reviewed & are unremarkable except as noted in HPI and below PFSH All Active Problems (Updated 03/06/24 @ 16:46 by Juanito Latham MD) Transaminitis (Acute) Bilateral edema of lower extremity (Acute) Ascites (Acute) Metastatic cancer (Acute) Social History Smoking risk assessment performed?: No Alcohol Intake: former Drug use: Never Substance use type: does not use Housing: apartment Additional Social history: Pt has daughter and son that lives downstairs. States daughter doesn't help her and son in law only sometimes. Has been near immobile d/t fluid overload for 3 weeks. Meds Allergies and Home Medications Allergies Allergy/AdvReac Type Severity Reaction Status Date / Time No Known Allergies Allergy Verified 03/06/24 10:59 Home Medications ?Medication ?Instructions ?Recorded ?Confirmed ?Type blood sugar diagnostic (OneTouch 03/06/24 03/06/24 History Ultra Test strips) bupropion HCl 150 mg 24 hr tablet, 150 mg PO DAILY 03/06/24 03/06/24 History extended release fluoxetine 10 mg capsule 10 mg PO DAILY 03/06/24 03/06/24 History furosemide 40 mg tablet 40 mg PO DAILY 03/06/24 03/06/24 History hydroxyzine HCl 25 mg tablet 25 mg PO DAILY 03/06/24 03/06/24 History lisinopril 20 mg tablet 20 mg PO DAILY 03/06/24 03/06/24 History potassium chloride 10 mEq 10 meq PO DAILY 03/06/24 03/06/24 History tablet,extended release(part/cryst) rosuvastatin 10 mg tablet 10 mg PO ONCE 03/06/24 03/06/24 History Exam Narrative Exam Narrative: Head eyes ears nose and throat: Bilateral icterus but otherwise normocephalic atraumatic mucous membranes moist extract motions are intact Neck: No lymphadenopathy no JVD no thyromegaly Cardiovascular: Tachycardia but no murmur rubs or gallop Lungs: Clear to auscultation bilaterally with no accessory muscle use able to speak in complete sentences Abdomen: Distended with bowel sounds decreased Extremity: 3+ lower extremity edema with venous stasis changes bilaterally Neuro: Cranial nerves II through XII intact as tested reflexes in upper lower extremity normal as tested Psych: She is alert and oriented to person place and time. Patient gives a linear history. Results Labs 03/06/24 10:56 03/06/24 10:56 Labs: Laboratory Results - last 24 hr 03/06/24 03/06/24 03/06/24 09:49 10:56 12:00 WBC 21.26 H RBC 4.28 Hgb 11.0 L Hct 35.4 L MCV 83 MCH 25.7 L MCHC 31.1 L RDW 21.6 H Plt Count 357 MPV 11.0 Immature Gran % 0.6 Neutrophils % 84.1 Lymphocytes % 7.4 Monocytes % 7.4 Eosinophils % 0.1 Basophils % 0.4 Nucleated RBC % 0.0 Absolute Neutrophils 17.88 H Absolute Lymphocytes 1.57 Absolute Monocytes 1.57 H Absolute Eosinophils 0.02 Absolute Basophils 0.09 RBC Morphology See Below Anisocytosis 1+ Sodium 142 Potassium 3.6 Chloride 106 Carbon Dioxide 24.5 Anion Gap 11.5 H BUN 22 H Creatinine 1.2 H Est GFR (CKD-EPI 2020) 46.33 Glucose 127 H Calcium 8.4 L Magnesium 1.9 Total Bilirubin 1.87 H AST 141 H ALT 26 Alkaline Phosphatase 340 H Troponin I 7 8 NT-Pro-B Natriuret Pep 813 H Total Protein 5.9 L Albumin 2.0 L TSH Cancelled 2.01 03/06/24 12:46 WBC RBC Hgb Hct MCV MCH MCHC RDW Plt Count MPV Immature Gran % Neutrophils % Lymphocytes % Monocytes % Eosinophils % Basophils % Nucleated RBC % Absolute Neutrophils Absolute Lymphocytes Absolute Monocytes Absolute Eosinophils Absolute Basophils RBC Morphology Anisocytosis Sodium Potassium Chloride Carbon Dioxide Anion Gap BUN Creatinine Est GFR (CKD-EPI 2020) Glucose Calcium Magnesium Total Bilirubin AST ALT Alkaline Phosphatase Troponin I Cancelled NT-Pro-B Natriuret Pep Total Protein Albumin TSH Last Vital Signs Pulse 102 H 03/06/24 15:46 Resp 26 H 03/06/24 11:27 BP 113/46 L 03/06/24 15:46 Pulse Ox 98 03/06/24 15:51 Time Spent Time spent with Patient: 55-74 minutes Time was spent: preparing to see the patient(eg.review tests), obtaining and/or reviewing separately otained hiistory, ordering medications,tests, procedures, referring, communicating with other health child caregiver private home, indepentently interpreting results, counseling the patient and care coordination
--- NOTE | 2024-03-06 16:39 | W.PC.ACHO ---
Registration Status: Primary Language: Preferred Language: ED Information & Data Chief Complaint SOB 03/06/24 11:27 Chief Complaint SOB 03/06/24 09:50 Triage Note dizzy, SOB, increase BLE was 03/06/24 09:28 unable to stand this AM. Recent increase diuretic- sees home health Most Recent Vital Signs Pulse 102 H 03/06/24 15:46 Pulse 103 H 03/06/24 10:20 Respiratory Rate 26 H 03/06/24 11:27 Respiratory Effort Short of Breath, Labored 03/06/24 11:27 Respiratory Depth Normal 03/06/24 11:27 Respiratory Pattern Normal 03/06/24 11:27 Blood Pressure 113/46 L 03/06/24 15:46 Blood Pressure Mean 65 03/06/24 15:46 Pulse Oximetry 98 03/06/24 15:51 Oxygen Delivery Method Room Air 03/06/24 09:28 Oxygen Flow Rate 0 03/06/24 09:28 Allergies No Known Allergies Allergy (Verified 03/06/24 10:59) Active Medications Generic Name Dose Route Start Last Admin Trade Name Chai PRN Reason Stop Dose Admin Iohexol 75 ml 03/06/24 12:15 03/06/24 12:09 Omnipaque 350 Mg/Ml 100 Ml Btl IJ 04/05/24 23:59 75 ml DIRECTED NILO Administration Sodium Chloride 50 ml 03/06/24 12:15 03/06/24 12:10 Normal Saline - Diluent 50 Ml Vial IJ 50 ml .FOR DI USE NILO Administration IV IV Catheter Type [Right Upper Saline Lock arm] IV Catheter Gauge [Right Upper 20 arm] Diagnostics 03/06/24 03/06/24 03/06/24 Range/Units 15:12 12:46 12:00 WBC (4.4-10.8) 10^3/uL RBC (3.93-5.22) 10^6/uL Hgb (11.2-15.7) g/dL Hct (36.0-46.0) % MCV (80-95) fL MCH (27.0-33.0) pg MCHC (32.0-36.0) % RDW (11.7-14.6) % Plt Count (130-400) 10^3/uL MPV (8.0-11.0) fL Immature Gran % % Neutrophils % % Lymphocytes % % Monocytes % % Eosinophils % % Basophils % % Nucleated RBC % (0.0-0.3) % Absolute Neutrophils (1.2-6.7) 10^3/uL Absolute Lymphocytes (1.2-3.4) 10^3/uL Absolute Monocytes (0.1-0.8) 10^3/uL Absolute Eosinophils (0.0-0.7) 10^3/uL Absolute Basophils (0.0-0.2) 10^3/uL RBC Morphology Anisocytosis PT Pending INR Pending APTT Pending Sodium (136-145) mmol/L Potassium (3.5-5.1) mmol/L Chloride (98-107) mmol/L Carbon Dioxide (21.0-32.0) mmol/L Anion Gap (3-11) mmol/L BUN (7-18) mg/dL Creatinine (0.55-1.02) mg/dL Est GFR (CKD-EPI 2020) (mL/min/1.73m2) Glucose (74-106) mg/dL Calcium (8.5-10.1) mg/dL Magnesium (1.8-2.4) mg/dL Total Bilirubin (0.2-1.0) mg/dL AST (15-37) U/L ALT (14-59) U/L Alkaline Phosphatase (46-116) U/L Troponin I Cancelled 8 (<or=51) ng/L NT-Pro-B Natriuret Pep (<300) pg/mL Total Protein (6.4-8.2) g/dL Albumin (3.4-5.0) g/dL TSH 03/06/24 03/06/24 Range/Units 10:56 09:49 WBC 21.26 H (4.4-10.8) 10^3/uL RBC 4.28 (3.93-5.22) 10^6/uL Hgb 11.0 L (11.2-15.7) g/dL Hct 35.4 L (36.0-46.0) % MCV 83 (80-95) fL MCH 25.7 L (27.0-33.0) pg MCHC 31.1 L (32.0-36.0) % RDW 21.6 H (11.7-14.6) % Plt Count 357 (130-400) 10^3/uL MPV 11.0 (8.0-11.0) fL Immature Gran % 0.6 % Neutrophils % 84.1 % Lymphocytes % 7.4 % Monocytes % 7.4 % Eosinophils % 0.1 % Basophils % 0.4 % Nucleated RBC % 0.0 (0.0-0.3) % Absolute Neutrophils 17.88 H (1.2-6.7) 10^3/uL Absolute Lymphocytes 1.57 (1.2-3.4) 10^3/uL Absolute Monocytes 1.57 H (0.1-0.8) 10^3/uL Absolute Eosinophils 0.02 (0.0-0.7) 10^3/uL Absolute Basophils 0.09 (0.0-0.2) 10^3/uL RBC Morphology See Below Anisocytosis 1+ PT INR APTT Sodium 142 (136-145) mmol/L Potassium 3.6 (3.5-5.1) mmol/L Chloride 106 (98-107) mmol/L Carbon Dioxide 24.5 (21.0-32.0) mmol/L Anion Gap 11.5 H (3-11) mmol/L BUN 22 H (7-18) mg/dL Creatinine 1.2 H (0.55-1.02) mg/dL Est GFR (CKD-EPI 2020) 46.33 (mL/min/1.73m2) Glucose 127 H (74-106) mg/dL Calcium 8.4 L (8.5-10.1) mg/dL Magnesium 1.9 (1.8-2.4) mg/dL Total Bilirubin 1.87 H (0.2-1.0) mg/dL AST 141 H (15-37) U/L ALT 26 (14-59) U/L Alkaline Phosphatase 340 H (46-116) U/L Troponin I 7 (<or=51) ng/L NT-Pro-B Natriuret Pep 813 H (<300) pg/mL Total Protein 5.9 L (6.4-8.2) g/dL Albumin 2.0 L (3.4-5.0) g/dL TSH 2.01 Cancelled Intake and Output - 24 Hour Total 03/06/24 09:21 thru 03/06/24 13:05 Output Total 120 Balance -120 Weight 80.014 kg Output: Urine 120 Falls Risk Assessment History of Falls Previous History 03/06/24 11:27 Contributing Factors Unstable,Impairments, 03/06/24 11:27 Incontinence,Medications Ambulatory Aids Independent 03/06/24 11:27 Tubes/Lines With any additional score 03/06/24 11:27 Gait Evaluation W/any additional score 03/06/24 11:27 Cognition No cognitive impairment 03/06/24 11:27 Fall Total Score 67 03/06/24 11:27 Level of Risk High Risk 03/06/24 11:27 v v v v v v v v v Sending and/or Receiving Nurses: Please use comment section below to note any information pertinent to the patient hand-off not included above. Information / Comments: Report received from:milana in ED given to Anay DALLAS @[facility]
[2024-03-06] MEDS: Enoxaparin 40 MG/0.4 ML SYR SC (18:36)
[2024-03-06] MEDS: Normal Saline Flush 10 ML SYR IVP (22:00)
[2024-03-07 07:08] LABS: HCT 32.7 % (36.0-46.0); HGB 10.4 g/dL (11.2-15.7); MCHC 31.8 % (32.0-36.0); MCV 82 fL (80-95); MPV 11.7 fL (8.0-11.0); Platelet Count 329 10^3/uL (130-400); RDW 21.8 % (11.7-14.6); RDW-SD 63.1 fL; WBC 22.15 10^3/uL (4.4-10.8)
[2024-03-07 07:39] LABS: ALT 20 U/L (14-59); AST 138 U/L (15-37); Albumin 1.6 g/dL (3.4-5.0); Alkaline Phosphatase 257 U/L (46-116); Anion Gap 12.7 mmol/L (3-11); BUN 20 mg/dL (7-18); Bilirubin, Total 1.62 mg/dL (0.2-1.0); CO2 21.3 mmol/L (21.0-32.0); CREATININE 1.1 mg/dL (0.55-1.02); Chloride 107 mmol/L (98-107); Estimated GFR 51.43 (mL/min/1.73m2); Glucose 115 mg/dL (74-106); Potassium 3.1 mmol/L (3.5-5.1); Sodium 141 mmol/L (136-145); Total Protein 4.8 g/dL (6.4-8.2)
[2024-03-07 07:43] LABS: Calcium 7.8 mg/dL (8.5-10.1)
[2024-03-07 08:02] VITALS: BP 117/46; PULSE 108; RESP 18; TEMP 37.3; O2SAT 97
[2024-03-07] MEDS: buPROPion-XL 150 MG TABCR PO (09:36)
[2024-03-07] MEDS: Potassium Chloride 10 MEQ TABCR PO (09:36)
[2024-03-07] MEDS: FLUoxetine 10 MG TAB PO (09:36)
[2024-03-07] MEDS: hydrOXYzine HCL 25 MG TAB PO (09:36)
[2024-03-07] MEDS: Normal Saline Flush 10 ML SYR IVP ×2 (09:38→20:53)
--- NOTE | 2024-03-07 13:27 | W.PM.PROGNOT ---
Date of Service Date of service: 03/07/24 Time of Service: 17:36 Objective Last Vital Signs Temp 37.3 C 03/07/24 08:02 Pulse 108 H 03/07/24 08:02 Resp 18 03/07/24 08:02 BP 117/46 L 03/07/24 08:02 Pulse Ox 97 03/07/24 08:02 Laboratory Results - last 24 hr 03/06/24 03/06/24 03/07/24 12:46 15:12 06:00 WBC 22.15 H RBC 4.00 Hgb 10.4 L Hct 32.7 L MCV 82 MCH 26.0 L MCHC 31.8 L RDW 21.8 H Plt Count 329 MPV 11.7 H PT Cancelled INR Cancelled APTT Cancelled Sodium 141 Potassium 3.1 L Chloride 107 Carbon Dioxide 21.3 Anion Gap 12.7 H BUN 20 H Creatinine 1.1 H Est GFR (CKD-EPI 2020) 51.43 Glucose 115 H Calcium 7.8 L Total Bilirubin 1.62 H AST 138 H ALT 20 Alkaline Phosphatase 257 H Troponin I Cancelled Total Protein 4.8 L Albumin 1.6 L Time Spent with Patient Time Spent with Patient: 25-34 minutes Time was spent: preparing to see the patient(eg.review tests), obtaining and/or reviewing separately otained hiistory, ordering medications,tests, procedures, referring, communicating with other health pharmacy customer care specialist, indepentently interpreting results, counseling the patient and care coordination
--- NOTE | 2024-03-07 14:32 | PDOC.CMIN ---
Date of service: 03/07/24 Time of Service: 13:30 Care Management Initial Assmt Initial Assessment Reason for Hospitalization: liver mass Functional Status/Living Situation Patient Presentation: Piedad presented to the ED yesterday with c/o bilateral lower leg edema that was so painful she was unable to walk. She was found to have a liver mass, it is not known at this time if this is a metastasis, or the primary source of her cancer. Piedad has decided to forgo treatment for this cancer. When CM met with Piedad today, she was up in the bedside chair, legs elevated- reddened and notably swollen. Piedad did say that her legs are sore. Piedad was pleasant. She lives on the second floor of a 2 family home, her daughter, Hedy, and her family live on the first floor. The bottom apartment has 2 floors, as well, and all of the bedrooms are on the second floor. Piedad has a lot of difficulty navigating the stairs. She has had 2 falls recently, and is feeling that she is getting weaker. Hedy and her family are willing to be 24h care givers for Piedad. They have already been doing the shopping, meal prep, laundry and cleaning. Piedad and her family feel they could use some equipment support at home : hospital bed and safety equipment for the bathroom. CM did explain that 24h care is mandatory for hospice. CM called hospice. Intake is planning on visiting the family here at [facility] at 2:30 today. Town of Residence: [place] Resides with: Alone (apartment alone, but family in same house) Significant Other/Family: Local (Daughter, her , their 2 children and a fiance live in the apartment below.) Natural Supports: family Employment Status: Retired (was an addiction counselor) Instrumental Activities of Daily Living (ADLs): Requires support with Dishes/food prep, Groceries, Laundry and Transportation Medications Medication Management: No Issues/Barriers identified Physical Functioning/Mobility Assistive Device: walker. PT consult requested Advance Directives Advance Directives: Do you have an Advance Directive: N 11/24/21 13:27 AD On File at [facility]: N 09/03/21 16:05 Date Asked 03/06/24 03/06/24 09:33 AD Date Reviewed COLST On File at [facility] COLST Date Scanned Code Status Resuscitation Status DNR/DNI Portal Pt does not currently have a portal and education provided: No Insurance Coverage/Financial Issues Insurance: BC/BS Medicare Advantage Care Team Visit Care Team Role Provider Type SKIP Laureano Primary Care Provider PHYSICIANS THREADING MACHINE SETTER SKIP Richards Emergency Provider PHYSICIANS THREADING MACHINE SETTER Juanito Latham MD Admit Provider MD VALDOVINOS STAFF PHYSICIAN Attending Provider Discharge Potential Discharge Needs: Consult (hospice) and PCP F/U Appt Anticipated Barriers to Discharge: None Identified Patient/Family Education Needs: Review discharge instructions, discuss Ask Me Three Transportation: RCT (wheel chair van with lift assist) RCT Transportation: Wheel chair van Plan: Anticipate that Piedad will be discharged home in the next couple of days with Hospice support. She will be followed by the hospice team, and f/u with their providers. CM will continue to follow. Social Determinants of Health Screening Social Determinants of Health last assessed: 03/07/24 Will the Patient Participate in the Screening?: Yes Do you worry about having a steady place to live?: no Problems where you live: no known problems In the past 12 months, have you had to go without electric, gas, oil or water in your home?: no Have you or anyone in your house had to go without enough food to eat?: no Has lack of transportation kept you from medical appointments or from doing things needed for daily living?: yes Has anyone in your life made you feel unsafe or unsupported?: no How hard is it for you to pay for the very basics like food, housing, medical care, and heating? Would you say it is:: Not hard at all Do you want help finding or keeping work or a job?: I do not need or want help If for any reason you need help with day-to-day activities such as bathing, preparing meals, shopping, managing finances, etc., do you get the help you need?: I need a lot more help (hospice consult placed) How often do you feel lonely or isolated from those around you?: Sometimes (has lost 25 loved ones in 2023) Do you speak a language other than [place] at home?: No Does the patient want assistance with any of the above?: Yes Social Determinants of Health Comments(SDOH Details): Requires home living assistance. Son and daughter do not help her as she needs, reported by pt Health Related Social Needs Health related social needs: transportation insecurity (Z59.82), problems with daily activities (Z73.9) and feeling lonely/isolated (Z60.8) PFSH All Active Problems (Updated 03/06/24 @ 16:46 by Juanito Latham MD) Transaminitis (Acute) Bilateral edema of lower extremity (Acute) Ascites (Acute) Metastatic cancer (Acute) Social History Smoking risk assessment performed?: No Alcohol Intake: former Drug use: Never Substance use type: does not use Housing: apartment Additional Social history: Pt has daughter and son that lives downstairs. States daughter doesn't help her and son in law only sometimes. Has been near immobile d/t fluid overload for 3 weeks. Readmission Within the Past 30 Days Yes or No: No Anticipated HH Services Anticipated HH Services at Discharge [facility] Needed, Hospice.
[2024-03-07] MEDS: ALBUMIN HUMAN 25 GM/100 ML BTL IVPB (15:39)
--- NOTE | 2024-03-07 15:47 | CHAPLAIN ---
Piedad was up in the chair when I visited. Her daughter and son in law were with her. Piedad explained that she's been told that she has months to live and she's decided to go on hospice and is waiting for someone from hospice to meet with her and her family this afternoon. Piedad said she is not afraid of dying. 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 She continues to be involved with working the AA program. Piedad said others are upset about her new diagnosis, but she is not. Everyone else is upset. Not me. If this is my time, this is my time. I let her know that on hospice she'll have access to Rev. Salma Niño, the hospice educator.
--- NOTE | 2024-03-07 15:54 | W.PM.PROGNOT ---
Date of Service Date of service: 03/07/24 Time of Service: 15:55 Assessment and Plan Assessment and plan (1) Ascites: Status: Acute Assessment and plan: Will d/w hospice and pt to see if they would be interested in a therapeutic tap 03.07.[address] Barrett of to see if he would be interested in a pleurx catheter. (asked by the Hospice Dr) (2) Metastatic cancer: Status: Acute Assessment and plan: Pt is planing on hospice care (3) Bilateral edema of lower extremity: Status: Acute Assessment and plan: has been tried on diuretics without much success. Will consider increasing diuretic dose although I think the edema is more from disease process with 3rd spacing that isn't readily improved with diuresis 03.07.24 NS and pt state that the lasix did help to some extent. Considering this, will order a dose of albumin and a follow on lasix dose to see if we can mobilize some fluid. (4) Transaminitis: Status: Acute Assessment and plan: noted Subjective Subjective Interval history since last seen: PT seen and examined this am. Pt states that she is not interested in anymore diagnostic or therapeutic procedures and wishes to go on hospice. I have also placed a consult to for possible placement of a pleurx catheter and pt is willing to do the procedure Exam Narrative Exam Narrative: Head eyes ears nose and throat: Bilateral icterus but otherwise normocephalic atraumatic mucous membranes moist extract motions are intact Neck: No lymphadenopathy no JVD no thyromegaly Cardiovascular: Tachycardia but no murmur rubs or gallop Lungs: Clear to auscultation bilaterally with no accessory muscle use able to speak in complete sentences Abdomen: Distended with bowel sounds decreased Extremity: 3+ lower extremity edema with venous stasis changes bilaterally Neuro: Cranial nerves II through XII intact as tested reflexes in upper lower extremity normal as tested Psych: She is alert and oriented to person place and time. Patient gives a linear history. Objective Last Vital Signs Temp 37.3 C 03/07/24 08:02 Pulse 108 H 03/07/24 08:02 Resp 18 03/07/24 08:02 BP 117/46 L 03/07/24 08:02 Pulse Ox 97 03/07/24 08:02 Laboratory Results - last 24 hr 03/06/24 03/07/24 15:12 06:00 WBC 22.15 H RBC 4.00 Hgb 10.4 L Hct 32.7 L MCV 82 MCH 26.0 L MCHC 31.8 L RDW 21.8 H Plt Count 329 MPV 11.7 H PT Cancelled INR Cancelled APTT Cancelled Sodium 141 Potassium 3.1 L Chloride 107 Carbon Dioxide 21.3 Anion Gap 12.7 H BUN 20 H Creatinine 1.1 H Est GFR (CKD-EPI 2020) 51.43 Glucose 115 H Calcium 7.8 L Total Bilirubin 1.62 H AST 138 H ALT 20 Alkaline Phosphatase 257 H Total Protein 4.8 L Albumin 1.6 L Time Spent with Patient Time Spent with Patient: 25-34 minutes Time was spent: preparing to see the patient(eg.review tests), obtaining and/or reviewing separately otained hiistory, ordering medications,tests, procedures, referring, communicating with other health career services officer, indepentently interpreting results, counseling the patient and care coordination
[2024-03-07] MEDS: Enoxaparin 40 MG/0.4 ML SYR SC (17:17)
[2024-03-07] MEDS: Furosemide 40 MG/4 ML VIAL IVP (17:17)
[2024-03-08] MEDS: buPROPion-XL 150 MG TABCR PO (08:27)
[2024-03-08] MEDS: FLUoxetine 10 MG TAB PO (08:27)
[2024-03-08] MEDS: hydrOXYzine HCL 25 MG TAB PO (08:28)
[2024-03-08] MEDS: Furosemide 40 MG TAB PO (08:28)
[2024-03-08] MEDS: Potassium Chloride 10 MEQ TABCR PO (08:29)
[2024-03-08] MEDS: Normal Saline Flush 10 ML SYR IVP ×2 (11:25→21:00)
--- NOTE | 2024-03-08 13:30 | PGE_ITS ---
Date of Service Date of service: 03/08/24 Time of Service: 13:30 Assessment and Plan Assessment and plan (1) Ascites: Status: Acute Assessment and plan: Will d/w hospice and pt to see if they would be interested in a therapeutic tap 03.07.[address] Barrett of to see if he would be interested in a pleurx catheter. (asked by the Hospice Dr) 03.08.24 Pt did have a fairly good diuresis with albumin and lasix. Was considering a repeat but BP is a bit soft. IF BP improves, consider a repeat treatment tomorrow (2) Metastatic cancer: Status: Acute Assessment and plan: Pt is planing on hospice care (3) Bilateral edema of lower extremity: Status: Acute Assessment and plan: has been tried on diuretics without much success. Will consider increasing diuretic dose although I think the edema is more from disease process with 3rd spacing that isn't readily improved with diuresis 03.07.24 NS and pt state that the lasix did help to some extent. Considering this, will order a dose of albumin and a follow on lasix dose to see if we can mobilize some fluid. (4) Transaminitis: Status: Acute Assessment and plan: noted Subjective Subjective Interval history since last seen: PT seen and examined in her room today. Pt is amendable to pleurX placement. Pt denies any significant abd pain at this time. Exam Narrative Exam Narrative: Head eyes ears nose and throat: Bilateral icterus but otherwise normocephalic atraumatic mucous membranes moist extract motions are intact Neck: No lymphadenopathy no JVD no thyromegaly Cardiovascular: Tachycardia but no murmur rubs or gallop Lungs: Clear to auscultation bilaterally with no accessory muscle use able to speak in complete sentences Abdomen: Distended with bowel sounds decreased Extremity: 3+ lower extremity edema with venous stasis changes bilaterally Neuro: Cranial nerves II through XII intact as tested reflexes in upper lower extremity normal as tested Psych: She is alert and oriented to person place and time. Patient gives a linear history. Objective Last Vital Signs Temp 37.3 C 03/07/24 08:02 Pulse 108 H 03/07/24 08:02 Resp 18 03/07/24 08:02 BP 117/46 L 03/07/24 08:02 Pulse Ox 97 03/07/24 08:02 Time Spent with Patient Time Spent with Patient: <25 minutes Time was spent: preparing to see the patient(eg.review tests), obtaining and/or reviewing separately otained hiistory, ordering medications,tests, procedures, referring, communicating with other health behavioral health care coordinator, indepentently interpreting results, counseling the patient and care coordination
--- NOTE | 2024-03-08 14:02 | W.SURGCON ---
Date of service: 03/08/24 Time of Service: 14:02 Assessment and Plan Assessment and plan (1) Ascites: Status: Acute Assessment and plan: At this point, the ascites is relatively low volume, and seems essentially asymptomatic. In that regard, I do not think there is any urgency to paracentesis or insertion of a Pleurx catheter. However, I do believe that a majority of general symptoms are driven by poor synthetic liver function, and the consequences of hypoproteinemia. I tried to explain that to Piedad and her daughter and simple language, and I do think that they understand that. I explained that she will almost certainly develop more ascites in the future, although the timing of this is quite difficult to say. Given the challenges that she seems to have with mobility, and what seems like a fairly brisk overall decline in her functional status, I do think it makes a lot of sense to insert a Pleurx catheter prior to her discharge as that would certainly make transitioning towards home based care much easier. Alternatively, if she wants to go home without paracentesis, that would also be reasonable and we could adjust as necessary on an outpatient basis with either intermittent paracentesis, or insertion of the catheter as mentioned above. For right now, I will make arrangements to proceed with a Pleurx catheter on Wednesday prior to her discharge, but I did explain to Piedad and her daughter that she should take a little bit of time to think about this and revisit any questions that they develop over the next few days. History of Present Illness History of Present Illness Chief Complaint: Lower extremity edema Narrative: Piedad 78 years old. She comes to the emergency department with increasing difficulty with ambulation, multiple falls, and exacerbation of bilateral lower extremity edema. She underwent a CT scan that demonstrated diffuse abnormal confluent hypodensities involving both lobes of the liver suspicious for metastatic disease. Cirrhotic features were also described. There is a small amount of ascites adjacent to the liver seen on the CT scan as well. I was asked to see her in consideration for a Pleurx catheter to help with ascites managed as plans are being made for transitioning towards hospice care. I met with Piedad in her room and reviewed some of the history with her. As best I understand, her chief complaint regards difficulty with ambulation secondary to bilateral lower extremity edema. This has become worse over the past several weeks, and has been associated with falls on at least 2 occasions over the past 6 months. She also tells me that she has been, increasingly fatigued, and really cannot tolerate any of the previous activity that she typically enjoyed. She does have some exertional dyspnea, but denies any abdominal pain. I also had a conversation with Piedad in the presence of her daughter on the telephone. I summarized her care as best I understood. It does sound like there is a little bit of confusion regarding the overall hospice intent. Starr had some concerns about the lack of therapeutic intent, in the absence of a biopsy result confirming cancer. However, Piedad is pretty clear that regardless of the diagnosis, she would never want to undergo treatment with any type of chemotherapy or radiation therapy. And although Ara questions regarding the lack of tissue diagnosis are certainly reasonable, I did explain, that as I see it, the radiographic features are strongly consistent with some type of cancer and unless Piedad is willing to give some consideration to therapeutic procedures for the treatment of that cancer, then the benefit of a tissue diagnosis as it regards her overall care is a bit of a moot point. I think they both have a pretty good understanding of this, but I do think this may take a few conversations as transitioning towards end-of-life care is certainly challenging. At that point, I moved over to explaining a little more regarding my role, and the consultation for a Pleurx catheter. PFSH All Active Problems (Updated 03/06/24 @ 16:46 by Juanito Latham MD) Transaminitis (Acute) Bilateral edema of lower extremity (Acute) Ascites (Acute) Metastatic cancer (Acute) Social History Smoking risk assessment performed?: No Alcohol Intake: former Drug use: Never Substance use type: does not use Housing: apartment Additional Social history: Pt has daughter and son that lives downstairs. States daughter doesn't help her and son in law only sometimes. Has been near immobile d/t fluid overload for 3 weeks. Exam Const General: cooperative and no acute distress Nutritional Appearance: malnourished Orientation: alert, awake and oriented x3 GI Other: Her abdomen is soft, and although it feels a little bit full, I suspect this is largely secondary to hepatomegaly, and what may very well be carcinomatosis. It does not really feel like tense ascites. Results Last Vital Signs Temp 99.1 F 03/07/24 08:02 Pulse 108 H 03/07/24 08:02 Resp 18 03/07/24 08:02 BP 117/46 L 03/07/24 08:02 Pulse Ox 97 03/07/24 08:02 Labs 03/07/24 06:00 03/07/24 06:00
[2024-03-08] MEDS: Enoxaparin 40 MG/0.4 ML SYR SC (17:30)
[2024-03-09 07:43] VITALS: BP 117/50; PULSE 97; RESP 16; TEMP 37.2; O2SAT 94
[2024-03-09] MEDS: Furosemide 40 MG TAB PO (08:30)
[2024-03-09] MEDS: Normal Saline Flush 10 ML SYR IVP ×5 (08:31→23:46)
[2024-03-09] MEDS: FLUoxetine 10 MG TAB PO (08:31)
[2024-03-09] MEDS: Potassium Chloride 10 MEQ TABCR PO (08:31)
[2024-03-09] MEDS: buPROPion-XL 150 MG TABCR PO (08:31)
[2024-03-09] MEDS: hydrOXYzine HCL 25 MG TAB PO (08:31)
[2024-03-09] MEDS: Acetaminophen 325 MG TAB 650 MG PO (10:23)
--- NOTE | 2024-03-09 10:38 | NUR.NOTE ---
Nursing Note: Spoke with daughter on phone at pt bedside per pt request about d/c concerns. Referral to [facility],
[2024-03-09 11:53] LABS: INR 1.7 (0.9-1.1); Prothrombin Time 16.1 sec (9.1-11.1)
--- NOTE | 2024-03-09 12:19 | W.PM.PROGNOT ---
Date of Service Date of service: 03/09/24 Time of Service: 12:20 Assessment and Plan Assessment and plan (1) Ascites: Status: Acute Assessment and plan: Will d/w hospice and pt to see if they would be interested in a therapeutic tap 03.07.[address] Barrett of to see if he would be interested in a pleurx catheter. (asked by the Hospice Dr) 03.08.24 Pt did have a fairly good diuresis with albumin and lasix. Was considering a repeat but BP is a bit soft. IF BP improves, consider a repeat treatment tomorrow 03.09.24 Plan is to get pleurx tomorrow. (2) Metastatic cancer: Status: Acute Assessment and plan: Pt is planing on hospice care 03.09.24 Plan is to discharge pt on hospice care on Wednesday. Did d/w Dr Fleming who recommended palliative care consult and I will place (3) Bilateral edema of lower extremity: Status: Acute Assessment and plan: has been tried on diuretics without much success. Will consider increasing diuretic dose although I think the edema is more from disease process with 3rd spacing that isn't readily improved with diuresis 03.07.24 NS and pt state that the lasix did help to some extent. Considering this, will order a dose of albumin and a follow on lasix dose to see if we can mobilize some fluid. (4) Transaminitis: Status: Acute Assessment and plan: noted Subjective Subjective Interval history since last seen: Pt is without significant complaint this am. POC d/w pt and bedside nurse during MDR Exam Narrative Exam Narrative: Head eyes ears nose and throat: Bilateral icterus but otherwise normocephalic atraumatic mucous membranes moist extract motions are intact Neck: No lymphadenopathy no JVD no thyromegaly Cardiovascular: Tachycardia but no murmur rubs or gallop Lungs: Clear to auscultation bilaterally with no accessory muscle use able to speak in complete sentences Abdomen: Distended with bowel sounds decreased Extremity: 3+ lower extremity edema with venous stasis changes bilaterally Neuro: Cranial nerves II through XII intact as tested reflexes in upper lower extremity normal as tested Psych: She is alert and oriented to person place and time. Patient gives a linear history. Objective Last Vital Signs Temp 37.2 C 03/09/24 07:43 Pulse 97 H 03/09/24 07:43 Resp 16 03/09/24 07:43 BP 117/50 L 03/09/24 07:43 Pulse Ox 94 03/09/24 07:43 Laboratory Results - last 24 hr 03/09/24 11:31 PT 16.1 H INR 1.7 H Time Spent with Patient Time Spent with Patient: 25-34 minutes Time was spent: preparing to see the patient(eg.review tests), obtaining and/or reviewing separately otained hiistory, ordering medications,tests, procedures, referring, communicating with other health career technical supervisor, indepentently interpreting results, counseling the patient and care coordination
[2024-03-09 15:02] VITALS: BP 117/50; PULSE 95; RESP 16; TEMP 36.7; O2SAT 95
--- NOTE | 2024-03-09 15:17 | PCNE_ITS ---
Date of service: 03/09/24 Time of Service: 15:17 History of Present Illness Narrative: Piedad Medley is a 78-year-old woman from [facility] who presented to [facility] ED 3 days ago with increasing weakness, leg edema and ascites. She was found on imaging to have multiple liver lesions suspicious for metastatic disease. She was admitted to the hospital for symptomatic treatment of fluid overload. Initial recommendation was for her to have liver biopsy down at [facility] by IR team. At that time, Ms. Medley told hospitalist that she would not want to undergo any chemotherapy or other treatment and therefore wanted no further testing done. Over the last 48 hours treatment has been aimed at symptom improvement including adjustment of diuretics and other medications. No further blood work has been done. I am told that the plan is for her to go home with concurrent hospice admission over the weekend (2 to 3 days from now). Palliative care team has been consulted to help with goals of care discussions and help with additional level of support. History today from [facility] records, discussion with hospitalist and case management, and additional history from the patient. Patient was at times somewhat suspicious and medicine historian and seem to reluctant to discuss (notated below) Care Team: Primary Care physician:SKIP Peña [facility] Social HX: Lives in a [id number] apartment on second floor of her daughter Beverly's home. ( son-in-law and their two adult children liver there as well. Marital Status: Occupation: Retired addiction counselor Children: Only daughter involved in her care is Becki. We did not explore how many children. She has multiple grandchildren, great-grandchildren and even has several great great grandchildren. Hobbies: Enjoys collecting things ([employer] memorabilia, beanie babies, others) Additional Services: None currently, plan is for her to go home on hospice Impression of currents health status: They told me today I only have 3 to 6 months to live . Overall not doing very well. What bothers you the most: Has not been sleeping well at night in the hospital. Having vivid dreams causing her to wake up every 2 hours and then be up for an hour before Falling back to sleep. This is new. Not being disturbed by staff or by noise in the hospital. She does not want to try any melatonin or other sleep meds. Sounds like she is having some lower extremity myoclonus and/or fasciculations that are bothersome. What worries you the most: She did not answer this despite being asked several times. Changed subject. Goals: -Wants to complete a will -Hopes to hire auctioneer to sell offered various collections in order to leave funds for grandchildren. -When asked what she enjoys, she tells me I have lost 35 people to in the last year . She does not explain this statement -When prompted, she says she does enjoy spending time with her family and hopes that a visit from her great great grandchildren who live out of state can be arranged. Current information preferences: Function: Ambulation: Walker. Increasing difficulty with stairs and walking in general prior to admission. ADLs: Patient reports independent prior to admission. iADLs: Recently daughter has had to do her shopping, meal prep, laundry and cleaning. Hearing: Reports intact Vision: Reports some decreased vision Cognition: Denies any memory problems Falls: Driving: Palliative Performance Scale % Ambulation Activity and Evidence of Disease Self Care Intake Level of Consciousness 100 Full Normal activity, no evidence of disease Full Normal Full 90 Full Normal activity, some evidence of disease Full Normal Full 80 Full Normal activity with effort, some evidence of disease Full Normal or reduced Full 70 Reduced Unable to do normal work, some evidence of disease Full Normal or reduced Full 60 Reduced Unable to do hobby or some housework, significant disease Occasional assist necessary Normal or reduced Full or confusion 50 Mainly sit/lie Unable to do any work, extensive disease Considerable assistance required Normal or reduced Full or confusion 40 Mainly in bed Unable to do any work, extensive disease Mainly assistance Normal or reduced Full, drowsy, or confusion 30 Totally bed bound Unable to do any work, extensive disease Total care Reduced Full, drowsy, or confusion 20 Totally bed bound Unable to do any work, extensive disease Total care Minimal sips Full, drowsy, or confusion 10 Totally bed bound Unable to do any work, extensive disease Total care Mouth care only Drowsy or coma 0 - - - - Patient Score: Difficult to get patient to discuss. Best guess is that just prior to admission her performance scale had decreased to 60. Spiritual history: Patient declined to discuss today. Palliative review of systems: Pain: Denies. Today tells me that she has not been bothered by ascites or leg edema, but this was presenting symptom to ED. Dyspnea: GI symptoms: Appetite: Tangential reply Depression: Denies. Indicates that she is grieving but does not wish to discuss. Anxiety: None Emotional Distress: Spiritual/Existential Distress: Labs: 03/07/2024 Cr: Creatinine 1.1 Liver panel: Mildly elevated mildly elevated bilirubin, AST, alkaline phosphatase, see results Albumin: 1.6 CBC: Hemoglobin 10.4, platelets 329, WBC 22K INR: 1.7 Advanced Care Planning: Advanced Directive: None on file Health Care Agent: Becki La (daughter). form completed 03/09/2024. COLST: Chart states DNR/DNI CODE STATUS. COLST form completed today (03/09/2024) Limitations: Assessment and Plan Assessment and plan (1) Liver masses: Status: Acute Assessment and plan: Piedad Medley is a 78-year-old woman with diagnosis of several liver masses and suspicious lesions in bone, adrenal glands and lungs who appears to have probable malignancy causing liver failure in addition to ascites and peripheral edema. 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 She is declining further workup including imaging or any additional blood work and would like to go home on hospice as soon as this can be arranged. #Large liver mass with transaminitis and evidence of portal hypertension: I asked patient to explain to me her thoughts behind choosing not to have further evaluation. Her explanation was I would never do chemotherapy . When I asked her what led to her deciding this, she explained: My whole family has of cancer . However she would not share any more information such as issues with chemotherapy or what kind of cancer they had or how they . 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 Despite asking several different ways, I never did find out what her worried her about cancer treatment or what worried her about having further workup to delineate what kind of cancer she had. She was very clear that she did not want to pursue treatment, but never did explain to me her thoughts behind this. We discussed prognosis . I note when I asked her what she understood about her medical problem, she told me I only have 3 to 6 months to live . We discussed how difficult it is to make a prognosis, especially without knowing more about what kind of liver masses she had. Discussed how difficult it is to predict for a particular person but that in general people in this similar clinical situation have been observed to have that range of life expectancy. Some People do not live as long as 3 months and some people live longer than 6 months . She does seem to be accepting of this. #Liver dysfunction Patient was somewhat tangential and elusive to my initial questioning. I was concerned that she might have some mild hepatic encephalopathy. However she has no asterixis and as our discussion progressed, she appears oriented and appears to have encephalopathy. There is seem to be several topics that she was not prepared to discuss with me today. These include ongoing grief from the of several close family members recently. I think that when she is admitted to hospice, she would benefit from meeting with application specialist to explore this further. #Goals of care Piedda was reluctant to discuss her feelings about recent diagnosis or how this was a impacting her life. I had the sense that she was being somewhat stoic. I am hoping that with time, she is able to let her guard down. When she is on hospice, she may feel more comfortable discussing this. What she was willing to share (with considerable prompting) was that she is looking forward to being back in her home home with her family around her. She is hoping to be visited by grandchildren, great-grandchildren and even great great grandchildren. She has several matters That she needs to settle including having a will made and selling off several large collections that she has so that she can leave financial Legacy to several of her family members. As discussed above. 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 Although she tells me many family members of cancer, she cannot recall any of them being on hospice at the end of their lives. Yet she is looking forward to going home on hospice. Discussed what hospice entails: Hospice team working with her and her family to make sure her symptoms are optimally managed so she has the best quality of life she can at home. Very rarely patients need to be admitted to the hospital for symptom management. Other hospice policies (examples of type of support which are provided, ability to continue to see her PCP if she wishes as she mentioned this, that she is allowed to revoke hospice if she wishes to, etc.) are discussed as well. She tells me that she still plans to go home on hospice in 2 to 3 days. Note that her family is not present for this discussion. Advanced directive: Patient has never filled out an advanced directive. Healthcare agent: Patient does not have healthcare agent or medical power of prefitter forms completed. She reports this has not been done because there is some conflict between her and her daughter Hedy over who should be her healthcare agent. Piedad wants Hedy to be her primary healthcare agent and friend Wendie Jacobo (lives in [place]) to be her alternate. Hedy has told Piedad that she should appoint her son-in-law and grandson to alternates. I explained to Piedad that. Choice of healthcare agent is hers. She should choose someone who she trusts....someone who she thinks will make decisions that reflect what she would want if she was making the decisions herself. After further discussion, healthcare agent form completed to put daughter as healthcare agent and friend Wendie as alternate. Life-sustaining treatment: Admitting hospitalist discussed CODE STATUS with patient and she indicated that she did not wish to have CPR or to be intubated. Subsequently she is declining any further evaluation and would like to go home on hospice. No COLST has been completed. We discussed the procedure of CPaR, actual mechanical process, rate of success in restoring heartbeat, short and long-term side effects in survivors (including likely decreased physical and cognitive functioning). Patient confirmed that she would not want cardiac resuscitation or to be placed on a ventilator under any circumstances. COLST form was completed reflecting her wishes and signed by patient. #Symptom management: A. Ascites and leg edema Hospitalist and surgical teams have evaluated her for possible therapeutic paracentesis. As of yesterday, all felt she was not having enough symptoms for urgent paracentesis at that time. Today she was offered to have peritoneal catheter placed before being admitted to the hospice to use for symptomatic relief of ascites going forward. I was present when she met with Dr. Fleming. They both decided to proceed with placement of peritoneal catheter tomorrow. B. Problems with sleep maintenance: Patient declined melatonin for now. Hopefully her sleep will improve when she is home. C. Myoclonus? RLS? Patient describes foot jerking also involving leg at times . Not observed. Sounds like myoclonus or possible fasciculations in the presence of liver failure. SSRI can contribute to this, But she is on a low- dose fluoxetine and I do not think this is a good time to stop this medication. Suggest: Staff trying to observe phenomena and define what is going on. Would suggest waiting until patient is home and letting hospice team decide whether or not to add on BZD's, as this would cause significant sedation given her liver issues. D. History depression/grief: Continue support from hospital staff and application specialist. I also get some hints that there is some family conflict, which hospice team should be aware of. Patient should be leaving the hospital in next few days and being admitted to hospice. If for any reason she remains in the hospital after the weekend, palliative care team will follow up with her. Please call with any questions or if sooner follow-up needed (2) Ascites: Status: Acute (3) Advanced care planning/counseling discussion: Status: Acute (4) Palliative care patient: Status: Acute (5) DNR (do not resuscitate): Status: Acute Assessment and plan: 16 to 30 minutes spent today on Advance Care Planning. Patient and family participated voluntarily. Advance care planning may include (not limited to) explanation and discussion of advance directives, choosing and appointing healthcare agents, alternatives to various ACP tools, discussion of (and if indicated, completion of) COLST form, discussion of patient's values and overall goals for treatment, palliative and disease directive care options, ways to avoid hospital readmission including hospice discussions, care preferences should the patient's several other adverse health events.See today's palliative care note for additional information. This note was dictated using speech recognition software. Attempt was made at proofreading, but errors may be present. Please call with questions. PFSH All Active Problems (Updated 03/09/24 @ 20:56 by Yessenia Fleming DO) Anasarca (Acute) DNR (do not resuscitate) (Acute) See 03/09/2024 coldest: DNR, DNI Palliative care patient (Acute) Advanced care planning/counseling discussion (Acute) Liver masses (Acute) Transaminitis (Acute) Bilateral edema of lower extremity (Acute) Ascites (Acute) Metastatic cancer (Acute) Liver masses, suspicious lesions BOne, Lung, Adrenal gland, ascites. Patient declines further workup (i.e. biopsy) Social History Smoking risk assessment performed?: No Alcohol Intake: former Drug use: Never Substance use type: does not use Housing: apartment Additional Social history: Pt has daughter and son that lives downstairs. States daughter doesn't help her and son in law only sometimes. Has been near immobile d/t fluid overload for 3 weeks. Exam Narrative Exam Narrative: Cooperative and conversive elderly woman somewhat pale. No obvious jaundice or scleral icterus. Reclining in a recliner with feet elevated. No obvious dyspnea or discomfort. Speech is fluid. She is cooperative and interactive. Some of her answers are somewhat tangential or perhaps evasive and she outright declines to answer some questions No asterixis. I note that when she is asked to sign healthcare agent and COLST forms after our discussion, she points out several misspellings appropriately and insist that I change them (suggesting that she is cognitively intact). Results Last Vital Signs Temp 36.7 C 03/09/24 15:02 Pulse 95 H 03/09/24 15:02 Resp 16 03/09/24 15:02 BP 117/50 L 03/09/24 15:02 Pulse Ox 95 03/09/24 15:02 Labs 03/07/24 06:00 03/07/24 06:00 Labs: Laboratory Results - last 24 hr 03/09/24 11:31 PT 16.1 H INR 1.7 H Time Spent Time Spent with Patient Time Spent(min): 90
--- NOTE | 2024-03-09 15:28 | PDOC.CMPRO ---
Date of service: 03/09/24 Time of Service: 14:00 Care Management Progress Note Progress Note Text Progress Note Text: Tatianna was sitting up in the bedside chair when CM met with her today. She asked about hospice, and what that would look like for her at home. CM did her best to describe the extra supports she would be getting, but also let her know that hospice is different for different families, depending on the needs and the family. Hospice is driven by the wants of the patient. Tatianna will be going home on Wednesday, with hospice admission on Wednesday. CM has spoken with both Tatianna and her daughter, Hedy, about this plan. This will give Hedy time to arrange and clean the apartment that Tatianna will be staying in. Hedy has been caring for a different family member, and has not been home for a bit and felt she required this time. Hospital bed and commode will be delivered tomorrow, and Tatianna will return home the next day. Tatianna will require either an ambulance, or a lift assist from the fire department to enter her apartment. Tatianna will be having a Pleurx catheter placed in the OR tomorrow, and is pleased to have the extra day in the hospital to get acquainted with the device. Tatianna is aware that she will likely not be leaving the apartment again. She was very reflective on her life while talking with CM today. She has started to make a list of things she would like to do before she dies. She is struggling a bit with her diagnosis, as she says she has felt really fine, just the swelling in her legs, and some pain. Nothing really seemed out of the ordinary to her, and she was taken aback by the news that she has months to live. She stated that she knows she has made some mistakes in her life, but feels she has lived a good life. Discharge Potential Discharge Needs: Other (hospice admission) Anticipated Barriers to Discharge: None Identified Patient/Family Education Needs: Review discharge instructions, discuss Ask Me Three Transportation: EMS (Tatianna is struggling to transfer even to the chair.) Plan: Anticipate that Tatianna will be discharged home on Wednesday, with hospice admission on Wednesday. A hospital bed and commode will be delivered to the home tomorrow (Wednesday). Tatianna's daughter and her family will be caring for Tatianna at home. Tatianna will f/u with the hospice providers in her home, and continue per the plan of care. CM will continue to follow. Social Determinants of Health Screening Social Determinants of Health last assessed: 03/09/24 Will the Patient Participate in the Screening?: Yes Do you worry about having a steady place to live?: no Problems where you live: no known problems In the past 12 months, have you had to go without electric, gas, oil or water in your home?: no Have you or anyone in your house had to go without enough food to eat?: no Has lack of transportation kept you from medical appointments or from doing things needed for daily living?: yes Has anyone in your life made you feel unsafe or unsupported?: no How hard is it for you to pay for the very basics like food, housing, medical care, and heating? Would you say it is:: Not hard at all Do you want help finding or keeping work or a job?: I do not need or want help If for any reason you need help with day-to-day activities such as bathing, preparing meals, shopping, managing finances, etc., do you get the help you need?: I need a lot more help (hospice consult placed) How often do you feel lonely or isolated from those around you?: Sometimes (has lost 25 loved ones in 2023) Do you speak a language other than Serbian at home?: No Does the patient want assistance with any of the above?: Yes Social Determinants of Health Comments(SDOH Details): Requires home living assistance. Son and daughter do not help her as she needs, reported by pt Health Related Social Needs Health related social needs: transportation insecurity (Z59.82), problems with daily activities (Z73.9) and feeling lonely/isolated (Z60.8) Anticipated HH Services Anticipated HH Services at Discharge [facility] Needed, Hospice.
[2024-03-09 19:59] VITALS: BP 124/69; PULSE 72; RESP 18; TEMP 36.6; O2SAT 97
--- NOTE | 2024-03-09 20:55 | PGE_ITS ---
Date of Service Date of service: 03/09/24 Time of Service: 17:00 Assessment and Plan Assessment and plan (1) Transaminitis: Status: Acute (2) Liver masses: Status: Acute Assessment and plan: large tumor of liver- primary vs mets. Pallative / hospitalists would like cytology of fluid pt does not want bx or treatment. pt met w/ palliative care and is entering into hospice place PleurX cath for control of ascites Wednesday inr is 1.7. WIll give dose of Vit K tonight to prevent bleeding during procedure (3) Ascites: Status: Acute (4) Metastatic cancer: Status: Acute (5) Anasarca: Status: Acute (6) Microcytic anemia: Status: Acute (7) Diverticula of colon: Status: Acute (8) Gallstones: Status: Acute (9) Atherosclerosis of arteries: Status: Acute (10) Leukocytosis (leucocytosis): Status: Acute (11) Elevated INR: Status: Acute (12) Hypoalbuminemia due to protein-calorie malnutrition: Status: Acute (13) DNR (do not resuscitate): Status: Acute (14) Urinary incontinence: Status: Acute Subjective Subjective Interval history since last seen: Patient has a larger amount of ascites today and is developing anasarca from the ASIS on down. She is incontinent of urine. She met with the palliative care team today and is going to be going into hospice on Wednesday or Wednesday. She is interested in having the Pleurx catheter placed and would like to have this done. Risks are the local anesthetics, infections, and proteinaceous clotting of the tube Patient has had an ovary removed in the past and has either a midline incision or a hockey-stick shaped incision on the right side. So the left side may be more amendable to positioning. -All anticoagulants are held -We do have a catheter in stock -Patient will plan on having the catheter placed on Wednesday. I did not get consent. -Palliative care would like us to still get cytology on the fluid Objective Last Vital Signs Temp 36.6 C 03/09/24 19:59 Pulse 72 03/09/24 19:59 Resp 18 03/09/24 19:59 BP 124/69 03/09/24 19:59 Pulse Ox 97 03/09/24 19:59 Laboratory Results - last 24 hr 03/09/24 11:31 PT 16.1 H INR 1.7 H Time Spent with Patient Time Spent with Patient: 25-34 minutes Time was spent: preparing to see the patient(eg.review tests), obtaining and/or reviewing separately otained hiistory, ordering medications,tests, procedures, referring, communicating with other health critical care rn, indepentently interpreting results, counseling the patient, care coordination and other
[2024-03-09] MEDS: PHYTONADIONE 10 MG in Normal Saline 50 ML 200 MG IVPB (22:30)
[2024-03-09] MEDS: LORazepam 2 MG/ML VIAL 0.5 MG IVP (23:46)
[2024-03-10] VITALS (18 sets, daily range): BP systolic 108–139; BP diastolic 45–63; PULSE 89–103; RESP 10–24; TEMP 36.4–37.2; O2SAT 93–99; BMI 29.1
[2024-03-10] MEDS: buPROPion-XL 150 MG TABCR PO (09:33)
[2024-03-10] MEDS: Potassium Chloride 10 MEQ TABCR PO (09:33)
[2024-03-10] MEDS: FLUoxetine 10 MG TAB PO (09:33)
[2024-03-10] MEDS: hydrOXYzine HCL 25 MG TAB PO (09:33)
[2024-03-10] MEDS: Furosemide 40 MG TAB PO (09:33)
[2024-03-10] MEDS: Acetaminophen 325 MG TAB 650 MG PO ×3 (09:33→22:32)
[2024-03-10] MEDS: Normal Saline Flush 10 ML SYR IVP ×2 (09:34→22:33)
--- NOTE | 2024-03-10 10:54 | ANES.PREOP_ITS ---
General Info Date of Service Date Performed: 03/10/24 Height: 5 ft 4 in Weight: 77 kg Body Mass Index (BMI): 29.1 Surgical Procedure: Operation Date: 03/10/24 11:10 Proposed Procedure Side Surgeon amber Loredo Catheter Placement Som Barrett MD Meds Allergies and Home Medications Allergies Allergy/AdvReac Type Severity Reaction Status Date / Time No Known Allergies Allergy Verified 03/06/24 10:59 Home Medication ?Medication ?Instructions ?Recorded blood sugar diagnostic (OneTouch 03/06/24 Ultra Test strips) bupropion HCl 150 mg 24 hr tablet, 150 mg PO DAILY 03/06/24 extended release fluoxetine 10 mg capsule 10 mg PO DAILY 03/06/24 furosemide 40 mg tablet 40 mg PO DAILY 03/06/24 hydroxyzine HCl 25 mg tablet 25 mg PO DAILY 03/06/24 lisinopril 20 mg tablet 20 mg PO DAILY 03/06/24 potassium chloride 10 mEq 10 meq PO DAILY 03/06/24 tablet,extended release(part/cryst) rosuvastatin 10 mg tablet 10 mg PO ONCE 03/06/24 lorazepam 1 mg tablet 1 mg PO Q4H PRN anxiety #7 tabs 03/09/24 morphine concentrate 100 mg/5 mL See Rx Instructions PO Q1H PRN #30 03/09/24 (20 mg/mL) oral solution mL Current Visit Medications: Current Medications Generic Name Dose Route Start Last Admin Trade Name Freq PRN Reason Stop Dose Admin Acetaminophen 650 mg 03/09/24 10:02 03/10/24 09:33 Acetaminophen 325 Mg Tab PO 650 mg Q6H PRN PRN Administration Bupropion HCl 150 mg 03/07/24 08:30 03/10/24 09:33 Bupropion-Xl 150 Mg Tabcr PO 150 mg DAILY NILO Administration Enoxaparin Sodium 40 mg 03/06/24 18:00 03/08/24 17:30 Enoxaparin 40 Mg/0.4 Ml Syr SC 40 mg Q24H NILO Administration Fluoxetine HCl 10 mg 03/07/24 08:30 03/10/24 09:33 Fluoxetine 10 Mg Tab PO 10 mg DAILY NILO Administration Furosemide 40 mg 03/07/24 08:30 03/10/24 09:33 Furosemide 40 Mg Tab PO 40 mg DAILY NILO Administration Hydroxyzine HCl 25 mg 03/07/24 08:30 03/10/24 09:33 Hydroxyzine Hcl 25 Mg Tab PO 25 mg DAILY NILO Administration Cefazolin Sodium/Dextrose 2 gm in 50 mls @ 100 mls/hr 03/10/24 09:00 Ancef Duplex IV 03/10/24 16:00 PREOP NILO IV Miscellaneous Supplies 1 each 03/08/24 13:00 Iv Access IV DIRECTED NILO Nicotine 14 mg 03/06/24 16:49 Nicotine 14 Mg/24 Hr Patch TD DAILY PRN PRN Polyethylene Glycol 17 gm 03/06/24 16:49 Polyethylene Glycol 3350 17 Gm Packet PO DAILY PRN PRN Constipation Potassium Chloride 10 meq 03/07/24 08:30 03/10/24 09:33 Potassium Chloride 10 Meq Tabcr PO 10 meq DAILY NILO Administration Sodium Chloride 0 ml 03/06/24 09:46 03/09/24 23:46 Normal Saline Flush 10 Ml Syr IVP 10 ml PRN PRN Administration Sodium Chloride 0 ml 03/06/24 20:00 03/10/24 09:34 Normal Saline Flush 10 Ml Syr IVP 10 ml BID NILO Administration Sodium Chloride 0 ml 03/06/24 09:46 Normal Saline 10 Ml Vial IJ DIRECTED PRN Sodium Chloride 44 ml 03/07/24 13:26 Sodium Chloride-Nasal [place]-Adult 44 Ml Btl NS QID PRN PRN PFSH Active Problems Active Problems: Problem Status Onset Code Urinary incontinence Acute R32 Hypoalbuminemia due to protein-calorie malnutrition Acute E88.09, E46 Elevated INR Acute R79.1 Leukocytosis (leucocytosis) Acute D72.829 Atherosclerosis of arteries Acute I70.90 Gallstones Acute K80.20 Diverticula of colon Acute K57.30 Microcytic anemia Acute D50.9 Anasarca Acute R60.1 DNR (do not resuscitate) Acute Z66 Palliative care patient Acute Z51.5 Advanced care planning/counseling discussion Acute Z71.89 Liver masses Acute R16.0 Transaminitis Acute R74.01 Bilateral edema of lower extremity Acute R60.0 Ascites Acute R18.8 Metastatic cancer Acute C79.9 Alcohol Alcohol Intake: former Substance Use Substance use: Never Substance use type: does not use Vital Signs and Lab Results Vital Signs Most Recent Vital Signs in EMR: Most Recent Vital Signs Temp Pulse Resp BP Pulse Ox 37.2 C 101 H 20 135/60 95 03/10/24 07:42 01/03/25 07:42 03/10/24 07:42 03/10/24 07:42 03/10/24 07:42 Point of Care Results Point of Care Results: Finger Stick Blood Glucose 198 03/09/24 20:50 Lab Results 03/07/24 06:00 03/07/24 06:00 Blood Type / Crossmatch: 2 No Data to Display Complete Blood Count: 2 White Blood Count 22.15 10^3/uL (4.4-10.8) H 03/07/24 06:00 Red Blood Count 4.00 10^6/uL (3.93-5.22) 03/07/24 06:00 Hemoglobin 10.4 g/dL (11.2-15.7) L 03/07/24 06:00 Hematocrit 32.7 % (36.0-46.0) L 03/07/24 06:00 Platelet Count 329 10^3/uL (130-400) 03/07/24 06:00 Complete Metabolic Panel: 2 Sodium 141 mmol/L (136-145) 03/07/24 06:00 Potassium 3.1 mmol/L (3.5-5.1) L 03/07/24 06:00 Chloride 107 mmol/L (98-107) 03/07/24 06:00 Carbon Dioxide 21.3 mmol/L (21.0-32.0) 03/07/24 06:00 BUN 20 mg/dL (7-18) H 03/07/24 06:00 Creatinine 1.1 mg/dL (0.55-1.02) H 03/07/24 06:00 Est GFR (CKD-EPI 2020) 51.43 (mL/min/1.73m2) 03/07/24 06:00 Magnesium 1.9 mg/dL (1.8-2.4) 03/06/24 10:56 Calcium 7.8 mg/dL (8.5-10.1) L 03/07/24 06:00 Albumin 1.6 g/dL (3.4-5.0) L 03/07/24 06:00 Glucose 115 mg/dL (74-106) H 03/07/24 06:00 Liver Function Panel: 2 Alanine Aminotransferase (ALT/SGPT) 20 U/L (14-59) 03/07/24 06: 00 Aspartate Amino Transf (AST/SGOT) 138 U/L (15-37) H 03/07/24 06 :00 Coagulation Panel: 2 INR International Normalized Ratio 1.7 (0.9-1.1) H 03/09/24 11 :31 Prothrombin Time 16.1 sec (9.1-11.1) H 03/09/24 11:31 Cardiac Panel: 2 Troponin I 8 ng/L (<or=51) 03/06/24 NT-Pro-B Natriuret Pep 813 pg/mL (<300) H 03/06/24 Arterial Blood Gas: 2 No Data to Display Venous Blood Gas: 2 No Data to Display Pancreas Panel: 2 No Data to Display Thyroid Panel: 2 Thyroid Stimulating Hormone (TSH) 2.01 uIU/mL (0.36-3.74) 03/06 10:56 Infectious Disease: 2 No Data to Display Blood Cultures: 2 No Data to Display Toxicology Panel: 2 No Data to Display Anesthesia Assessment and Plan Anesthesia History Personal History: No History of Anesthesia Complications Family History: No Family History of Anesthesia Complications Exercise Tolerance Exercise Tolerance: Unknown Cardiac & Pulmonary Exam Cardiac Exam: Normal S1/S2 Heart Sounds Pulmonary Exam: Clear Bilateral Breath Sounds Implantable Cardiac Device Does patient have a Pacemaker or an ICD?: No Airway Exam Known Difficult Airway: No Mallampati Class: 4 Mouth Opening: Narrow (< 3cm) Thyromental Distance: Greater than 3 cm Neck Range of Motion: Limited ROM Neck Circumference: Normal Teeth Condition: Removable Dentures/Plates Upper ASA Classification ASA Score: ASA 4 Emergency Case?: No NPO Status NPO Status: NPO Clears >2 hours, Solids >8 hours Anesthesia Plan Resuscitation Status: Full Code Anesthesia Technique: General Anesthesia Airway Planned: Natural Airway Monitors Used: Standard Monitors Preoperative Comments:: 78 yo female for Pleurx cath placement. Recently presented to the ER a few days ago with SOB. CT scan showed likely metastatic CA/liver CA. INR 1.7 (vitamin K given last night), albumin and protein are low. She is being discharged to home on hospice. plan to proactively place Pleurx prior to discharge. Sig PMHx: HTN, depression. EKG: sinus tach. States that she has no major heart or lung issues. She has been having difficulty going up and down stairs and is unsure if she could exert herself. Discussed plan of deep sedation/GA with the plan of no airway to start but with ETT/LMA if needed. Her DNR status will be suspended during the procedure, but she requests that efforts of resuscitation be stopped if she will not wake up the same
[2024-03-10] MEDS: Lactated Ringers 500 ML 30 ML IV (11:36)
--- NOTE | 2024-03-10 12:16 | W.PM.OP ---
Operative Note Operative Note PRE-OP DIAGNOSIS: Malignant ascites POST-OP DIAGNOSIS: same PROCEDURE: Insertion of peritoneal Pleurx drainage catheter for management of malignant ascites SURGEON: Som Barrett ANESTHESIA TYPE: Local By Surgeon and General:No Airway Refer to Anesthesia Record ESTIMATED BLOOD LOSS: 5 PATHOLOGY: other (Peritoneal fluid for cytology) COMPLICATIONS: None Patient was transported to: PACU Patient's condition: stable Implants: Pleurx peritoneal drainage catheter Indications: Piedad is a 78-year-old woman with multiple large intraparenchymal liver masses concerning for malignancy. She also has ascites. She is transitioning to hospice therapy, and I was asked to assist in her care with implantation of a peritoneal drainage catheter for management of her malignant ascites. Findings: Straw-colored ascites Procedure Description: I met with Piedad in the preoperative area, and we reviewed the plan for insertion of the Pleurx catheter today. She had no new questions compared to our previous conversations. She provided informed consent. Next, we moved back to the operating room. She was left on her hospital stretcher, and general anesthesia was induced by way of the natural airway. The abdominal wall was then exposed. I prepped and draped this. I made a small midline incision above the umbilicus and dissected down to the fascia. The fascia was grasped with Francisco clamps, and elevated. It was incised sharply. The underlying peritoneum was identified and also opened. There was drainage of some straw-colored ascites. Specimen was obtained for cytology at the request of the hospice service. There is a relatively low volume ascites at this point, but I obtained as much fluid as possible. Next, I advanced a guidewire down into the pelvis. Over this, I placed the introducer catheter. The wire was removed, and the peel-away introducer was left in place. Small separate skin incision was made, and the trajectory of the catheter was anesthetized with local anesthetic. Catheter was affixed to the tunneling device, and delivered through the new incision out through the midline access incision. The tunneler was cut free, and the catheter was advanced into the peritoneal cavity directed towards the pelvis as the peel-away introducer sheath was removed. The access site was then closed with interrupted Vicryl stitches, and surgical skin glue was used to seal over the incision. Pleurx catheter was coiled, and secured to the patient's abdominal wall according to the manufactures instructions. A Band-Aid was placed over the access site. The patient was allowed awaken from the anesthetic, transferred to the recovery unit prior to movement back up to the floor. Date of Procedure: 03/10/24
--- NOTE | 2024-03-10 12:47 | W.ANESPOSTOP ---
Postoperative Evaluation Date, Time and Location Date Performed: 03/10/24 Time Performed: 12:47 Patient Location: PACU Vital Signs Most Recent Imported Vital Signs: Most Recent Vital Signs Temp Pulse Resp BP Pulse Ox 36.8 C 102 H 21 139/47 L 93 03/10/24 12:30 03/10/24 12:30 03/10/24 12:31 03/10/24 12:30 03/10/24 12:31 Pain Score Most Recent Pain Score: Most Recent Pain Score Pain Level 0 03/10/24 12:35 Assessment Mental Status: Awake (Alert & Oriented to Patient Baseline) Airway and Respiratory Function: Patent airway with normal (patient baseline) respiratory exam Cardiovascular Function: Hemodynamically Stable Hydration Status: Adequately Hydrated Nausea & Vomiting: No Nausea or Vomiting Pain: Pain is tolerable per patient Peripheral Nerve Block: Patient did not receive a nerve block
--- NOTE | 2024-03-10 14:31 | W.PM.PROGNOT ---
Date of Service Date of service: 03/10/24 Time of Service: 14:31 Assessment and Plan Assessment and plan (1) Ascites: Status: Acute Assessment and plan: Will d/w hospice and pt to see if they would be interested in a therapeutic tap 03.07.[address] Barrett of to see if he would be interested in a pleurx catheter. (asked by the Hospice Dr) 03.08.24 Pt did have a fairly good diuresis with albumin and lasix. Was considering a repeat but BP is a bit soft. IF BP improves, consider a repeat treatment tomorrow 03.09.24 Plan is to get pleurx tomorrow. 03.10.24 Pt is s/p pleurX catheter placement. (2) Metastatic cancer: Status: Acute Assessment and plan: Pt is planing on hospice care 03.09.24 Plan is to discharge pt on hospice care on Wednesday. Did d/w Dr Fleming who recommended palliative care consult and I will place 03.10.24 Notes reviewed from palliative care and appreciate the input. PT for hospice tomorrow (3) Bilateral edema of lower extremity: Status: Acute Assessment and plan: has been tried on diuretics without much success. Will consider increasing diuretic dose although I think the edema is more from disease process with 3rd spacing that isn't readily improved with diuresis 03.07.24 NS and pt state that the lasix did help to some extent. Considering this, will order a dose of albumin and a follow on lasix dose to see if we can mobilize some fluid. 03.10.24 Will defer at this point (4) Transaminitis: Status: Acute Assessment and plan: noted Subjective Subjective Interval history since last seen: PT seen and examined in her room s/p procedure. No new complaints. I was also in communication with Dr Barrett of the who stated that the procedure went well Exam Narrative Exam Narrative: Head eyes ears nose and throat: Bilateral icterus but otherwise normocephalic atraumatic mucous membranes moist extract motions are intact Neck: No lymphadenopathy no JVD no thyromegaly Cardiovascular: Tachycardia but no murmur rubs or gallop Lungs: Clear to auscultation bilaterally with no accessory muscle use able to speak in complete sentences Abdomen: Distended with bowel sounds decreased Extremity: 3+ lower extremity edema with venous stasis changes bilaterally Neuro: Cranial nerves II through XII intact as tested reflexes in upper lower extremity normal as tested Psych: She is alert and oriented to person place and time. Patient gives a linear history. Objective Last Vital Signs Temp 36.6 C 03/10/24 14:01 Pulse 97 H 03/10/24 14:01 Resp 10 L 03/10/24 14:01 BP 116/49 L 03/10/24 14:01 Pulse Ox 95 03/10/24 14:01 Time Spent with Patient Time Spent with Patient: <25 minutes Time was spent: preparing to see the patient(eg.review tests), referring, communicating with other health memory care program director and indepentently interpreting results
--- NOTE | 2024-03-10 15:46 | CMPROGNOTE_ITS ---
Date of service: 03/10/24 Time of Service: 15:46 Care Management Progress Note Progress Note Text Progress Note Text: Tatianna underwent a procedure today for the insertion of peritoneal Pleurx drainage catheter for management of malignant ascites. She was off to her procedure before CM could meet with her this morning, and she has been sleeping each of 3 times when CM went to meet with her today. CM did speak with Hedy, Tatianna's daughter, this afternoon. The bed and supplies have been delivered, and she is all set at home to receive her mom tomorrow. Hedy and CM discussed that Tatianna will be discharged from the hospital in a wheel chair van. Hedy will need to call [employer] and request a lift assist to bring her mom into the apartment. She was aware of this procedure. Hedy was given the # to [facility], and informed that they would be out to the house on Wednesday. This had previously be confirmed by CM with hospice. Hedy has the # for hospice should she need it. Discharge Potential Discharge Needs: Other (hospice admission) Anticipated Barriers to Discharge: None Identified Patient/Family Education Needs: Review discharge instructions, discuss Ask Me Three Transportation: RCT RCT Transportation: Wheel chair van ([employer] [phone] lift assist) Social Determinants of Health Screening Social Determinants of Health last assessed: 03/10/24 Will the Patient Participate in the Screening?: Yes Do you worry about having a steady place to live?: no Problems where you live: no known problems In the past 12 months, have you had to go without electric, gas, oil or water in your home?: no Have you or anyone in your house had to go without enough food to eat?: no Has lack of transportation kept you from medical appointments or from doing things needed for daily living?: yes Has anyone in your life made you feel unsafe or unsupported?: no How hard is it for you to pay for the very basics like food, housing, medical care, and heating? Would you say it is:: Not hard at all Do you want help finding or keeping work or a job?: I do not need or want help If for any reason you need help with day-to-day activities such as bathing, preparing meals, shopping, managing finances, etc., do you get the help you need?: I need a lot more help (hospice consult placed) How often do you feel lonely or isolated from those around you?: Sometimes (has lost 25 loved ones in 2023) Do you speak a language other than Serbian at home?: No Does the patient want assistance with any of the above?: Yes Social Determinants of Health Comments(SDOH Details): Requires home living assistance. Son and daughter do not help her as she needs, reported by pt Health Related Social Needs Health related social needs: transportation insecurity (Z59.82), problems with daily activities (Z73.9) and feeling lonely/isolated (Z60.8)
[2024-03-10] MEDS: LORazepam 0.5 MG TAB PO (22:32)
[2024-03-11] MEDS: LORazepam 0.5 MG TAB PO (03:15)
[2024-03-11] MEDS: Acetaminophen 325 MG TAB 650 MG PO (03:15)
[2024-03-11] MEDS: rOPINIRole 0.5 MG TAB 0.25 MG PO (05:23)
[2024-03-11] MEDS: MORPHine Oral Solution 10 MG/5 ML CUP PO (05:52)
[2024-03-11 07:51] VITALS: BP 118/52; PULSE 90; RESP 16; TEMP 36.8; O2SAT 96
[2024-03-11] MEDS: Potassium Chloride 10 MEQ TABCR PO (08:13)
[2024-03-11] MEDS: Furosemide 40 MG TAB PO (08:13)
[2024-03-11] MEDS: buPROPion-XL 150 MG TABCR PO (08:13)
[2024-03-11] MEDS: FLUoxetine 10 MG TAB PO (08:13)
[2024-03-11] MEDS: hydrOXYzine HCL 25 MG TAB PO (08:13)
[2024-03-11] MEDS: Normal Saline Flush 10 ML SYR IVP (08:14)
--- NOTE | 2024-03-11 11:07 | DSE_ITS ---
Date of service: 03/11/24 Time of Service: 11:07 DS: Diagnosis Discharge Diagnosis (1) Ascites: Status: Acute (2) Metastatic cancer: Status: Acute (3) Bilateral edema of lower extremity: Status: Acute (4) Transaminitis: Status: Acute Discharge Plan Disposition Patient Disposition: Hospice Home Condition: Stable Discharge Details Reason For Visit: Liver Mass Admit Date/Time: 03/06/24 15:47 Admit Provider: Juanito Latham Attending Provider: Juanito Latham Primary Care Provider: Karen Iglesias Hospital Course Hospital Course: This is a 78-year-old female who presents to the ED with bilateral lower extremity edema. While she was in the ED a workup was performed which included a CT of her abdomen and pelvis. That CT was read as hepatic masses that were either primary or metastatic, as well as a mass in her adrenal gland and a possible bone mets. At the time of admission the plan was to transfer to [facility] for further evaluation and treatment but the patient decided to get on to hospice instead. The patient has been accepted into the hospice service and will be discharged today. Patient does not want to pursue any diagnostic or therapeutic interventions. While she was here though I had a Pleurx port was placed for comfort as she does have ascites that will only get worse. Home Meds and New Rx's Prescriptions: Continued morphine concentrate 100 mg/5 mL (20 mg/mL) solution See Rx Instructions PO Q1H PRN MDD 500 mg Qty: 30 0RF Rx Instructions: 0.25-1.0 ml orally every 1 hour, as needed; HOSPICE lorazepam 1 mg tablet 1 mg PO Q4H PRN (Reason: anxiety) Qty: 7 5RF Rx Instructions: hospice furosemide 40 mg tablet 40 mg PO DAILY fluoxetine 10 mg capsule 10 mg PO DAILY hydroxyzine HCl 25 mg tablet 25 mg PO DAILY bupropion HCl 150 mg tablet extended release 24 hr 150 mg PO DAILY Discontinued lisinopril 20 mg tablet 20 mg PO DAILY (DME) OneTouch Ultra Test Strip MISCELLANEOUS rosuvastatin 10 mg tablet 10 mg PO ONCE potassium chloride 10 mEq tablet,ER particles/crystals 10 meq PO DAILY Patient Comments: TAKE 1 TABLET BY MOUTH ONCE DAILY Discharge Instructions Stand Alone Forms: Nursing Discharge Form Referrals: Alfreda Cooper MD [ [facility] STAFF PHYSICIAN] - Activity:: Activity as Tolerated Equipment/Supplies:: No Equipment Needed Diet:: As Tolerated Discharge Orders Discharge Orders: Discharge Order (Routine); Ordered 03/11/24 Ordered By: Juanito Latham DS: Summary Time Spent with Patient providing and/or coordinating discharge services: Greater than 30 minutes Status at Discharge Functional status at discharge: independent ambulation Overall status at discharge: patient is not back to baseline Mental Status: mental status grossly normal Speech and Movement: speech and movement normal Mood: congruent mood Affect: normal affect Quality:SDOH Health Related Social Needs: Health related social needs transportation insecurity (Z59.82), problems w ith daily activities (Z73.9), feeling lonely/isolated (Z60.8) Exam Narrative Exam Narrative: Patient is resting comfortably No respiratory distress is noted Appears her stated age 2+ lower extremity edema bilaterally Psych Mental Status: mental status grossly normal Speech and Movement: speech and movement normal Mood: congruent mood Affect: normal affect DS: Data Vitals/I&O Vitals and I&O: Vital Signs Temperature 36.8 C 03/11/24 07:51 Temperature Source Temporal Artery Scan 03/11/24 07:51 Pulse 90 03/11/24 07:51 Pulse Rhythm Regular 03/06/24 17:16 Pulse 89 03/10/24 12:30 Respiratory Rate 16 03/11/24 07:51 Respiratory Effort Short of Breath, Labored 03/06/24 11:27 Respiratory Depth Normal 03/06/24 11:27 Respiratory Pattern Normal 03/06/24 11:27 Blood Pressure 118/52 L 03/11/24 07:51 Blood Pressure Mean 81 03/10/24 12:30 Pulse Oximetry 96 03/11/24 07:51 Respiratory End-tidal CO2 27 03/10/24 12:31 Oxygen Delivery Method Room Air 03/11/24 07:51 Oxygen Flow Rate 0 03/11/24 07:51 Pain Level 4 03/11/24 05:52 Comment 12/15 leg pain. 03/10/24 14:01 Intake & Output 03/10/24 03/10/24 03/11/24 11:59 23:59 11:59 Intake Total 910 / 910 Output Total 350 / 350 300 / 300 Balance -350 / 560 910 / 560 -300 / -300 Weight 77 kg Intake: IV 510 / 510 Oral 400 / 400 Output: Urine 350 / 350 300 / 300 Other: Urine Color Brown Brown Comment patient was changed at this time. urine mixed with stool. purewick Stool Size Moderate Small Stool Characteristics Soft Soft Formed Brown Emesis Description None PFSH All Active Problems (Updated 03/09/24 @ 21:11 by Yessenia Fleming DO) Urinary incontinence (Acute) Hypoalbuminemia due to protein-calorie malnutrition (Acute) Elevated INR (Acute) Leukocytosis (leucocytosis) (Acute) Atherosclerosis of arteries (Acute) Gallstones (Acute) Diverticula of colon (Acute) Microcytic anemia (Acute) Anasarca (Acute) DNR (do not resuscitate) (Acute) See 03/09/2024 coldest: DNR, DNI Palliative care patient (Acute) Advanced care planning/counseling discussion (Acute) Liver masses (Acute) Transaminitis (Acute) Bilateral edema of lower extremity (Acute) Ascites (Acute) Metastatic cancer (Acute) Liver masses, suspicious lesions BOne, Lung, Adrenal gland, ascites. Patient declines further workup (i.e. biopsy) Social History Smoking risk assessment performed?: No Alcohol Intake: former Drug use: Never Substance use type: does not use Housing: apartment Additional Social history: Pt has daughter and son that lives downstairs. States daughter doesn't help her and son in law only sometimes. Has been near immobile d/t fluid overload for 3 weeks. Time Spent with Patient Time Spent with Patient: 45-69 minutes Time was spent: preparing to see the patient(eg.review tests), referring, communicating with other health wound care nurse and counseling the patient
--- NOTE | 2024-03-11 14:15 | PDOC.CMDIS ---
Date of service: 03/11/24 Time of Service: 14:15 LACE Index Scoring Tool Questions: Length of Stay (in days): 4 - 6 Was the patient admitted via the E.D.?: Yes Comorbidities: Any Tumor and Metastatic Solid Tumor E.D. Visits: 0 Answers: Total Score: 12 Risk of Readmission: High Risk Care Management Discharge Plan Reason for Hospitalization: liver mass Discharge Plan: Piedad returned home today with a scheduled admission to hospice at home, tomorrow. CM coordinated RCT w/c van transport home as well as a lift assist by [employer]. CM spoke to her daughter, Hedy, over the phone, who was at her home and will receive her when she arrives. Piedad will follow up with hospice providers and her discharge plan of care. She was happy to be going home. Patient/Family Education Needs: Review discharge instructions and limitations, discussion of self care needs including ask me three. Services Needed at Discharge: Home Health Care Services (Hospice admission scheduled for 03/12/24) and Transportation (RCT w/c van with lift assist from [employer]) SDOH Health Related Social Needs: Health related social needs transportation insecurity (Z59.82), problems with daily activities (Z73.9), feeling lonely/isolated (Z60.8) Health related social needs: transportation insecurity(Z59.82)
== END 2024-03-11 12:03 | disposition hospice, inpatient (51) ==
LOC: ER 16:29 → MS 17:00
PROVIDERS: Surgery; Admitting Provider Hospitalist; Emergency Provider Physician Assistant; PCP Physician Assistant Medical; Visit Provider Hospitalist
PROC: (CPT 49418; principal; 2024-03-10 11:00)
DX: C80.1 Malignant (primary) neoplasm, unspecified (principal); R18.0 Malignant ascites; R29.6 Repeated falls; R16.0 Hepatomegaly, not elsewhere classified; R74.01 Elevation of levels of liver transaminase levels; Z66 Do not resuscitate; D50.9 Iron deficiency anemia, unspecified; D72.829 Elevated white blood cell count, unspecified; K80.20 Calculus of gallbladder without cholecystitis without obstruction; R79.1 Abnormal coagulation profile; E46 Unspecified protein-calorie malnutrition; R32 Unspecified urinary incontinence; R60.0 Localized edema
CPT/HCPCS: 49418; 00123; 36415; 80053; 85027; 93005; 96365; 96372; 96375; 96376; 99222; 99232; 99285; J1650; 71046; 74176; 83735; 83880; 84443; 84484; 85025; 85610; 85730; 88104; 93010; 93970; 99223; 99231; 99239; G0378; J1940; J2060; J2405; J2704; J3010; J3430; J3490; P9047